=== PATIENT | female | born 1965 | race Caucasian/White ===

== ENCOUNTER 2018-02-23 18:34 | Inpatient (IN) | payer BC, OTHER ==
[~2018-02-23] VITALS: Ht 160 cm; Wt 103.4 kg
[2018-02-23] MEDS ORDERED: MAG HYDROX/AL HYDROX/SIMETH 30 ML LIQUID UDC PO PRN (19:00)
[2018-02-23] MEDS ORDERED: DOCUSATE SODIUM 250 MG CAPSULE PO PRN (19:00)
[2018-02-23] MEDS ORDERED: ONDANSETRON 4 MG/2 ML VIAL IM PRN (19:00)
[2018-02-23] MEDS ORDERED: LOPERAMIDE HCL 2 MG CAPSULE PO PRN ×2 (19:00)
[2018-02-23] MEDS ORDERED: MIRALAX 17 GM POWD.PACK PO PRN (19:00)
[2018-02-23] MEDS ORDERED: IBUPROFEN 600 MG TABLET PO PRN (19:00)
[2018-02-23] MEDS ORDERED: LORAZEPAM 2 MG/1 ML VIAL IM PRN (19:00)
[2018-02-23] MEDS ORDERED: LORAZEPAM 1 MG TABLET PO PRN ×2 (19:00)
[2018-02-23] MEDS ORDERED: ONDANSETRON ODT 4 MG TAB.RAPDIS SL PRN (19:00)
[2018-02-23] MEDS ORDERED: BUPRENORPHINE HCL 2 MG TAB.SUBL SL PRN (19:00)
[2018-02-23] MEDS ORDERED: MAGNESIUM HYDROXIDE 30 ML LIQUID UDC PO PRN (19:00)
--- NOTE | 2018-02-23 20:00 | NUR ---
Intake Assessment Assessment done at intake office Pt appears mildly intoxicated. Patient is alert & oriented x4. She appears disheveled, unkempt & uncombed. She has a flushed face, anxious/irritable mood, and has poor concentration. She presented with fine tremors, nausea, headache and generalized body aches. She has soft and slurred speech. No complaints of shortness of breath noted. Vitals taken immediately B/P 132/81, AZ 88, RR 16, Temp 96.9, O2Sat 95%. Pt is coherent and is able to sign consent & respond to questions appropriately. Explained to pt unit protocols such as Q4H Vitals signs check & regarding destruction of any controlled substances brought to facility and handling of all medications. Pt verbalized understanding.
[2018-02-23 20:14] LABS: BASOPHILS # (AUTO) 0.1 K/uL (0.0-8.0); EOSINOPHILS # (AUTO) 0.3 K/uL (0.0-0.7); EOSINOPHILS % (AUTO) 2.3 % (0.0-7.0); HEMATOCRIT 35.8 % (31.2-41.9); HEMOGLOBIN 11.8 g/dL (10.9-14.3); LYMPHOCYTES # (AUTO) 4.9 K/uL (20.0-40.0); LYMPHOCYTES % (AUTO) 34.1 % (20.5-51.5); MEAN CORPUSCULAR HEMOGLOBIN 28.2 uug (24.7-32.8); MEAN CORPUSCULAR HGB CONC 33 g/dL (32.3-35.6); MEAN CORPUSCULAR VOLUME 85.5 fL (75.5-95.3); MONOCYTES # (AUTO) 0.9 K/uL (2.0-10.0); MONOCYTES % (AUTO) 6.5 % (0.0-11.0); NEUTROPHILS % (AUTO) 56.1 % (38.5-71.5); PLATELET COUNT (AUTO) 480 K/uL (179-408); RED BLOOD CELL COUNT(AUTO) 4.19 MIL/uL (3.63-4.92); WHITE BLOOD COUNT (AUTO) 14.3 K/uL (3.8-11.8)
[2018-02-23] MEDS ORDERED: DIAZEPAM 10 MG TABLET PO PRN ×2 (20:15)
[2018-02-23] MEDS ORDERED: DIAZEPAM 5 MG TABLET PO PRN (20:15)
[2018-02-23] MEDS ORDERED: TIZA4TAB4 PO (20:16)
[2018-02-23] MEDS ORDERED: OXYC-451 PO (20:16)
[2018-02-23 20:21] LABS: *URINE HCG, QUAL NEGATIVE (NEGATIVE)
[2018-02-23 20:28] LABS: *AMPHETAMINE, URINE NEGATIVE (NEGATIVE); *BARBITURATE, URINE NEGATIVE (NEGATIVE); *CANNABINOID, URINE NEGATIVE (NEGATIVE); *COCCAINE, URINE NEGATIVE (NEGATIVE); *OPIATE, URINE POSITIVE (NEGATIVE); *PHENCYCLIDINE SCREEN,URINE NEGATIVE (NEGATIVE); ALANINE AMINOTRANSFERASE 19 U/L (14-59); ALKALINE PHOSPHATASE 98 U/L (50-136); ASPARTATE AMINOTRANSFERASE 43 U/L (15-37); BILIRUBIN,TOTAL 0.2 mg/dL (0.2-1.0); CARBON DIOXIDE 28 mmol/L (21-32); CHLORIDE 95 mmol/L (98-107); CREATININE 1.2 mg/dL (0.6-1.3); GLUCOSE 215 mg/dL (74-106); MAGNESIUM 1.6 mg/dL (1.8-2.4); POTASSIUM 4.3 mmol/L (3.5-5.1); TOTAL PROTEIN, SERUM 8.1 g/dL (6.4-8.2); UREA NITROGEN, BLOOD 19 mg/dL (7-18)
[2018-02-23 20:30] VITALS: BP 132/81
[2018-02-23 20:36] LABS: THYROID STIMULATING HORMONE 6.688 mIU/mL (0.358-3.740)
[2018-02-23 20:37] LABS: ETHANOL < 3 MG/DL (0-0)
[2018-02-23] MEDS ORDERED: LORA1TAB PO (20:43)
[2018-02-23] MEDS ORDERED: MOME13HF IH (20:43)
[2018-02-23] MEDS ORDERED: AMLO1POW MC (20:43)
[2018-02-23] MEDS ORDERED: LURA40TA PO (20:43)
[2018-02-23] MEDS ORDERED: PROM25TA15 PO (20:43)
[2018-02-23] MEDS ORDERED: RANI300T4 PO (20:43)
[2018-02-23] MEDS ORDERED: SENN25TA9 PO (20:43)
[2018-02-23] MEDS ORDERED: GABA600T2 PO (20:43)
[2018-02-23] MEDS ORDERED: AMLO5TAB2 PO (20:43)
[2018-02-23] MEDS ORDERED: ASPI-605 PO (20:43)
[2018-02-23] MEDS ORDERED: OMEP40CA37 PO (20:43)
[2018-02-23] MEDS ORDERED: KETO5DRO OP (20:43)
[2018-02-23] MEDS ORDERED: ESCI20TA37 PO (20:43)
[2018-02-23] MEDS ORDERED: NORE5TAB3 PO (20:43)
[2018-02-23] MEDS ORDERED: LISI40TA4 PO (20:43)
[2018-02-23] MEDS ORDERED: FLUR30CA13 PO (20:43)
[2018-02-23] MEDS ORDERED: ATOR40TA PO (20:43)
[2018-02-23] MEDS ORDERED: ALBU8.5H8 IH (20:43)
[2018-02-23] MEDS ORDERED: NORT25CA PO (20:43)
[2018-02-23] MEDS ORDERED: domperidone (20:43)
[2018-02-23] MEDS ORDERED: BENZ200C53 PO (20:43)
[2018-02-23] MEDS ORDERED: CARV12.52 PO (20:43)
[2018-02-23] MEDS ORDERED: PATIENT MAY USE OWN MED- MD OK PO SCH ×3 (21:00)
[2018-02-23] MEDS ORDERED: ALBUTEROL SULFATE 2.5 MG/ 0.5 ML NEBU NEB PRN (21:00)
[2018-02-23] MEDS ORDERED: INSULIN GLARGINE 100 UNIT SQ SCH (21:00)
--- NOTE | 2018-02-23 21:00 | NUR ---
ADMISSION NOTE: Patient is a 52 y.o female admitted at [facility] on 02/23/18 for medically supervised withdrawal from Ativan, Percocet & Meth use. Patient arrived at approximately 2009pm. Body search done and skin check performed by female staff nurse, no contraband found. Skin noted to be intact. Pt is 5'3" tall and weighs 228 lbs in a standing scale. Pt is cooperative during assessment. Patient is oriented to floor unit and room. Patient follows a diabetic diet with allergies to Compazine, Zofran & Sulfa ATB. Pt wishes to be full Code. Pt appears mildly intoxicated. Patient is alert & oriented x4. She appears disheveled, unkempt & uncombed. She has a flushed face, anxious/irritable mood, and has poor concentration. She presented with fine tremors, nausea, headache and generalized body aches. She has soft and slurred speech. No complaints of shortness of breath noted. Bowel sounds active in all quadrants. Last Bowel movement was today 02/23/18. Lung Sounds clear throughout. Pt denies SOB, cough or chest pain at this time. Pt denies visual, auditory & tactile hallucinations. COWS 11 CIWA 18 noted at this time. Pt has a PCP named Dr. Dane Miller in [place]. Pt has medical history such as DM I, Dyslipidemia, Rheumatoid Arthritis, Atrial Fibrillation, Hypertension, Asthma, Anxiety, Manic Depression, GERD, Hx of TIA (Jun 2006), ADHD, Panic Disorder, PTSD, Bipolar D/O, Personality D/O, & Pneumonia (5 yrs ago). Pt denies any hx of suicide attempt. Pt currently denies SI/HI. Pt brought home medications with her. Blood Labs were drawn. Pt was able to provide urine sample for drug screen upon admission and is voiding clear yellow urine with no problems. Substance use: 1. Ativan- Patient stated that she first had Ativan 2 years ago. Pt is taking prescribed Ativan 3-4mg SL daily for anxiety for the past 2 years. She had 1mg of Ativan the day of present admission immediately prior to arrival on 02/23/18. 2. Percocet- Patient stated that she first had Percocet 4 years ago for her Chronic low back pain. Patient is taking 50-60mg of Percocet daily. She had a 10mg tab today @ around 1600 of 02/23/18. 3. 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 Patient has been smoking intermittently recently in an unspecified amount. Pt has been to [facility] in [place] in the past to detox off Xanax. Her longest period of sobriety was for 2 years more than 5 years ago. Since she's started Percocet and Ativan she has tried stopping on her own which lasted her 3 weeks 2 months ago. Per patient, "I don't get a lot of withdrawals. I usually just sleep and if I do get it, I'll have nausea, generalized body aches, headache, & fatigue". Per pt, she decided to come to treatment because "Im here to get off Opiate and Benzo's & to take medications that is not addictive". She also stated "I don't want to , I don't want to keep using meth cause it will kill me & I don't want to risk losing my ". Patient is a daily smoker she started smoking when she was 16 years old and currently smokes 20 cigarettes daily. Patient is at risk for falls. Patient reported that she fell at home 1 month ago and had deep bone bruising on her right rib. She also reported that she fell in bed 2 days ago. Fall & Seizure precautions are in place. Both side rails are up, educated on proper use of call light with good verbal understanding. Dr. Quijano saw patient at intake and orders are placed. Educated patient about plan of care including detox, group therapy, individual therapy, and discharge planning. Encouraged patient to verbalized feelings. Encourage fluids as tolerated. Will continue to monitor patient.
[2018-02-23] MEDS ORDERED: MAGNESIUM OXIDE 400 MG TABLET PO ONE (21:30)
--- NOTE | 2018-02-23 21:30 | NUR ---
MEDICATION ADMINISTRATION Pt brought medications from home, however pharmacy was already closed when medications were brought up to the unit, therefore scheduled home medications were not able to be verified by pharmacy to be administered at the 2100 scheduled time. was on the unit with ruddy to administer the patients home medications brought during admission. Medications were administered with primary nurse and charge nurse as witnesses.
[2018-02-23] MEDS ORDERED: DIAZEPAM 10 MG TABLET PO SCH (22:00)
[2018-02-23] MEDS: METHOCARBAMOL 750 MG TABLET PO PRN (22:20)
[2018-02-23] MEDS: diphenhydrAMINE 50 MG CAPSULE PO PRN (22:20)
--- NOTE | 2018-02-23 22:20 | NUR ---
PRN Motrin/Robaxin/Benadryl Patient complained of moderately severe headache & 7/10 generalized body aches. Pt is restless and complains of inability to fall asleep. PRN Motrin, Robaxin & Benadryl administered as ordered. Will monitor for effectiveness of medication.
--- NOTE | 2018-02-23 23:20 | NUR ---
PRN Reassessment Pt still awake at this time. Pt verbalized decreased in pain from 7/10 to 3/10 pain and relief from headache after medication administration. Pt in bed and appears comfortable. Safety measures in place. will continue to monitor patient.
[2018-02-24] VITALS: BP 142/77
[2018-02-24 04:00] VITALS: BP 117/84
[2018-02-24] MEDS ORDERED: INSU3INS6 SQ (07:03)
[2018-02-24] MEDS ORDERED: EQUATE (07:03)
[2018-02-24] MEDS ORDERED: LOPE1LIQ97 PO (07:03)
[2018-02-24] MEDS ORDERED: [UNRECOGNIZED DRUG - CODE] PO (07:03)
[2018-02-24] MEDS ORDERED: INSU100I4 SQ (07:03)
[2018-02-24] MEDS: METHOCARBAMOL 750 MG TABLET PO PRN (07:06)
--- NOTE | 2018-02-24 07:28 | NUR ---
End of Shift Note: Pt admitted last night at approximately 2009pm of 02/23/18 for medically supervised withdrawal from Ativan & Percocet use. Pt came in mildly intoxicated with an initial COWS 11 CIWA 18. She had a flushed face, anxious/irritable mood, and has poor concentration. She presented with fine tremors, nausea, headache and generalized body aches. Pt received a PRN Benadryl for sleep, Robaxin for body aches and Motrin for headache. All PRN medications given were effective. Continue to closely monitor patient. Vitals noted WNL and will be closely monitored. Pt slept for a total of 6 hours. Fluid intake: 750 ml, Voided 1x with no bowel movement. Continue to encourage pt to participate in group therapy and to increase fluid intake as tolerated. All needs attended & met. Safety measures in place. Will endorse pt to day shift nurse.
--- NOTE | 2018-02-24 07:30 | NUR ---
Start of Shift Pipe Processor received report on 52 year old female admitted to [facility] on 02/23/18 for medical management of Benzodiazepine, Opiate and Methamphetamine withdrawals. Pt endorses full code, allergies to Compazine, Zofran and Sulfa. Pt eats a Consistent Carb diet. Pt endorses a PMH of DM, Dyslipidemia, Rheumatoid Arthritis, A-Fib, HTN, Asthma and a history of TIA. PPH to include Anxiety, Depression, ADHD, Panic D/O, PTSD, Bipolar and Personality DO. Pt on a Subutex and vAlium taper, tolerating well with a last COWS 11 and CIWA 18, per NOC report. Pt administered Benadryl(insomnia), Robaxin(muscle spasms) x2, and Motrin(pain), per report. Pipe Processor encounters pt in hallway, A/O x4 and makes needs known. Blunted affect with depressed mood and linear thought process with clear speech. Pt endorses nausea, chills, sweats and anxiety r/t withdrawals. Bed in low position with wheels locked and side rails up x2. Will continue to monitor, support and encourage according to plan of care.
[2018-02-24 08:15] VITALS: BP 173/89
[2018-02-24] MEDS ORDERED: TUBERCULIN,PURIF.PROT.DERIV. 5 TU/0.1 ML TEST ID ONE (09:00)
[2018-02-24] MEDS: BUPRENORPHINE HCL 2 MG TAB.SUBL SL SCH ×3 (09:59→21:30)
[2018-02-24] MEDS: GABAPENTIN 600 MG PO SCH ×3 (09:59→16:48)
[2018-02-24] MEDS: DIAZEPAM 10 MG TABLET PO SCH ×3 (09:59→21:30)
--- NOTE | 2018-02-24 09:59 | NUR ---
Insulin Administration Embroidery Worker administered insulin per MD order without Accu-check due to pt's high A1C and pt's home regimen. MD ok'd administration without accu-check. Pt's medication did not require a second witness and was administered with ANN Gama verifying correct dose. Embroidery Worker administered medication in two separate injections, as the pt's own pen only had 16 units available and the order was for 50. Embroidery Worker then administered 34 units in a second injection, with pt tolerating well. Will continue to monitor, support and encourage according to plan of care.
[2018-02-24] MEDS: FORMOTEROL INH SCH ×2 (10:51→16:54)
[2018-02-24] MEDS: MOMETASONE INH SCH ×2 (10:51→16:54)
[2018-02-24] MEDS ORDERED: DEXTROSE 50% 50 ML DISP.SYRIN IV PRN ×2 (12:00→12:15)
[2018-02-24 12:30] VITALS: BP 133/41
[2018-02-24] MEDS: BLOOD SUGAR DIAGNOSTIC 1 EACH STRIP VI SCH ×3 (12:48→21:38)
[2018-02-24] MEDS: LIDOCAINE 5% PATCH TD SCH (12:48)
[2018-02-24] MEDS: KETOROLAC TROMETHAMINE 30 MG INJ IM PRN ×2 (12:48→21:31)
--- NOTE | 2018-02-24 12:48 | NUR ---
PRN Toradol Pt complain of lower back of 8/10 and requests pain medication. Leave Specialist administered medication per MD order and pt tolerated well. Will continue to monitor, support and encourage according to plan of care.
[2018-02-24] MEDS: INSULIN ASPART 1000 UNIT/10 ML SQ SCH ×2 (12:50→16:30)
[2018-02-24] MEDS ORDERED: BLOOD SUGAR DIAGNOSTIC 1 EACH STRIP VI SCH ×3 (13:00→16:30)
--- NOTE | 2018-02-24 13:18 | NUR ---
PRN Re-Assessment Pt endorses relief and is able to ambulate to the patio. Pt with a steady gait. Will continue to monitor, support and encourage according to plan of care.
[2018-02-24] MEDS ORDERED: hydrALAZINE HCL 50 MG TABLET PO PRN (14:30)
[2018-02-24] MEDS: PHENERGAN 25 MG PO PRN ×2 (15:11→21:18)
--- NOTE | 2018-02-24 15:11 | NUR ---
PRN Phenergan Pt complains of nausea and requests her own home medication. Executive Secretary Social Welfare administered medication per MD order, with pt toelrating well. Will continue to monitor, support and encourage according to plan of care.
--- NOTE | 2018-02-24 16:11 | NUR ---
PRN Re-Assessment Medication ineffective, as pt continues to complain of nausea and is requesting more medication. Pt is allergic to other anti-emetics. Will continue to monitor, support and encourage according to plan of care.
[2018-02-24 16:30] VITALS: BP 110/71
--- NOTE | 2018-02-24 16:30 | NUR ---
Accu-check/Insulin Pt's BS 54 on pre-dinner check. Pt consumed OJ and scientific technical writer did not administer insulin. notified with no new orders received. Pt has no symptoms and is A/O x4. Will continue to monitor, support and encourage according to plan of care.
--- NOTE | 2018-02-24 19:15 | NUR ---
Start of Shift Note: Received patient from day shift nurse. Patient is a 52 y.o male admitted for Opiate & Benzo withdrawal. Patient awake, aletr & oriented x4. Patient has a flushed face, anxious, & has a labile mood. Patient is disheveled, unkempt and uncombed. She presented with sweating, chills, 6/10 generalized body aches, nausea & complains of moderate severe headache. Patient started today with her 5-day Subutex and 5-day Ativan taper and tolerating well. She received PRN Toradol & Phenergan during the day and was effective. She is also diabetic and her last BS=54mg/dl. Pt is compliant with medications, treatment and diet regimen. Continue to encourage pt to increase fluid intake as tolerated for hydration. Will continue to encourage participation in group therapy to prevent relapse. Educated patient of current plan of care for the night and medication regimen. Safety precaution in place. Bed locked in lowest position. Both side rails up. Call light within pt's reach. Will continue to monitor patient.
--- NOTE | 2018-02-24 19:28 | NUR ---
End of Shift Hollock Maker provided report on 52 year old female admitted to [facility] on 02/23/18 for medical management of Benzodiazepine, Opiate and Methamphetamine withdrawals. Pt endorses full code, allergies to Compazine, Zofran and Sulfa. Pt eats a Consistent Carb diet. Pt endorses a PMH of DM, Dyslipidemia, Rheumatoid Arthritis, A-Fib, HTN, Asthma and a history of TIA. PPH to include Anxiety, Depression, ADHD, Panic D/O, PTSD, Bipolar and Personality DO. Pt on a Subutex and Valium taper, tolerating well with a last COWS 13 and CIWA 16, recorded at 1630. Pt administered Toradol(pain) and Phenergen(Nausea) on my shift. Pt is A/O x4 and makes needs known. Blunted affect with depressed mood and linear thought process with clear speech. Pt endorses nausea, chills, sweats and anxiety r/t withdrawals. Pt has been social with staff and peers, pt is dramatic and emotional, labile. Bed in low position with wheels locked and side rails up x2.
[2018-02-24 20:00] VITALS: BP 154/64
[2018-02-24] MEDS ORDERED: HOME MED MISCELLANEOUS PO SCH (21:00)
[2018-02-24] MEDS: LATUDA 40MG PO SCH (21:19)
[2018-02-24] MEDS: BACLOFEN 10 MG TABLET PO SCH (21:21)
--- NOTE | 2018-02-24 21:31 | NUR ---
PRN Toradol & Phenergan Patient complained of nausea, 8/10 generalized body aches & moderately severe headache. Patient is restless in bed with facial grimacing noted. PRN Phenergan PO and TOradol IM administered at left deltoid as ordered. Pt tolerated medications well. Safety measures in place. Will monitor effectiveness of medications.
[2018-02-24] MEDS ORDERED: INSULIN GLARGINE,HUM 300 UNITS/3 ML CARTRIDGE SQ ONE (22:01)
[2018-02-24] MEDS: INSULIN GLARGINE,HUM 300 UNITS/3 ML CARTRIDGE SQ SCH (22:31)
--- NOTE | 2018-02-24 22:31 | NUR ---
PRN Reassessment PRN medications effective. Patient observed in the hallway and verbalized decreased in body aches from 8/10 to 3/10 pain, headache decreased from 6/10 to 3/10 and relief from nausea after 1 hour of Toradol & Phenergan administration. Pt appears comfortable at this time. No facial grimacing noted. Safety measures in place. Will continue to monitor patient.
[2018-02-25] VITALS: BP 114/50
[2018-02-25] MEDS: PHENERGAN 25 MG PO PRN ×4 (03:43→21:38)
--- NOTE | 2018-02-25 03:43 | NUR ---
PRN Toradol & Phenergan Patient woke up with complaints of nausea, & 7/10 pain on her lower back. Patient is restless with facial grimacing noted. PRN Phenergan PO and Toradol IM administered at right deltoid as ordered. Pt tolerated medications well. Safety measures in place. Will monitor effectiveness of medications.
[2018-02-25] MEDS: KETOROLAC TROMETHAMINE 30 MG INJ IM PRN ×4 (03:44→23:31)
[2018-02-25 04:00] VITALS: BP 142/70
--- NOTE | 2018-02-25 04:43 | NUR ---
PRN Reassessment Patient asleep at this time and appears calm & comfortable. No facial grimacing noted. No episode of vomiting noted at this time. Safety measures in place. Will continue to monitor patient.
[2018-02-25 06:59] LABS: BASOPHILS # (AUTO) 0.1 K/uL (0.0-8.0); BASOPHILS % (AUTO) 0.5 % (0.0-2.0); EOSINOPHILS # (AUTO) 0.3 K/uL (0.0-0.7); EOSINOPHILS % (AUTO) 2.5 % (0.0-7.0); HEMATOCRIT 33.8 % (31.2-41.9); HEMOGLOBIN 11.1 g/dL (10.9-14.3); LYMPHOCYTES # (AUTO) 3.6 K/uL (20.0-40.0); LYMPHOCYTES % (AUTO) 30.1 % (20.5-51.5); MEAN CORPUSCULAR HEMOGLOBIN 28.1 uug (24.7-32.8); MEAN CORPUSCULAR HGB CONC 33 g/dL (32.3-35.6); MEAN CORPUSCULAR VOLUME 85.4 fL (75.5-95.3); MONOCYTES % (AUTO) 8.3 % (0.0-11.0); NEUTROPHILS # (AUTO) 7.1 K/uL (1.8-8.9); NEUTROPHILS % (AUTO) 58.6 % (38.5-71.5); PLATELET COUNT (AUTO) 388 K/uL (179-408); RED BLOOD CELL COUNT(AUTO) 3.96 MIL/uL (3.63-4.92); WHITE BLOOD COUNT (AUTO) 12.1 K/uL (3.8-11.8)
[2018-02-25 07:08] LABS: BILIRUBIN,DIRECT 0.1 mg/dL (0.0-0.2); BILIRUBIN,TOTAL 0.2 mg/dL (0.2-1.0); CREATININE 1.1 mg/dL (0.6-1.3); POTASSIUM 5.3 mmol/L (3.5-5.1); TOTAL PROTEIN, SERUM 7.2 g/dL (6.4-8.2)
[2018-02-25 07:22] LABS: THYROID STIMULATING HORMONE 3.039 mIU/mL (0.358-3.740)
--- NOTE | 2018-02-25 07:27 | NUR ---
End of Shift Note: Continue to closely monitor patient. Patient stable at this time. Pt remains alert & oriented x4. During my shift, she presented with sweating, chills, generalized body aches, nausea & anxiety, agitation, fine tremors & headache. Patient continues to have lower back pain and received PRN Toradol 2x for pain. Pt also continues to have intermittent nausea & received Phenergan 2x and were effective. Pt continues on her 5-day Ativan & 5-day Subutex taper and tolerating well. Last COWS 12 CIWA 13. Last BS= 211 @ 2100. Continue to closely monitor patient. Vitals noted WNL and will be closely monitored. Pt slept for a total of 6 hours. Fluid intake: 650 ml, Voided 1x with no bowel movement. Continue to encourage pt to participate in group therapy and to increase fluid intake as tolerated. All needs attended & met. Safety measures in place. Will endorse pt to day shift nurse.
--- NOTE | 2018-02-25 07:30 | NUR ---
Start of Shift Note Pt. is 52 y/o female admitted for the medically managed withdrawal from benzodiazepines, opiates, and methamphetamine. Pt. was placed on a 5 day Valium taper and a 4 day Subutex taper. Pt. has a medical history of diabetes type 1, HTN, A-fib, Asthma, Rheumatoid arthritis and multiple other morbidities. Endorsed pt.'s symptoms from previous shift were intermittent nausea, diaphoresis, chills, generalized body aches, anxiety, agitation, fine tremors and headache. Received pt. in bed sitting up in bed with eyes open. Pt. is disheveled, with unkempt hair, and dark rings around her eyes. Pt. has multiple open liquid containers and personal belongings cluttered about her room. Encouraged pt. to maintain a clean and hygienic person and personal space. Pt. presents with flushed facial skin, gross tremors, anxious, agitated, and a flat affect. Educated pt. on treatment plan and medication regiment. Pt. verbalize understanding. Last COW's 12 and CIWA 13. Safety measures in place. Will continue to monitor pt.'s behavior for safety.
[2018-02-25 08:00] VITALS: BP 113/58
[2018-02-25] MEDS: BLOOD SUGAR DIAGNOSTIC 1 EACH STRIP VI SCH ×4 (08:23→21:45)
[2018-02-25] MEDS: INSULIN ASPART 1000 UNIT/10 ML SQ SCH ×3 (08:26→16:30)
[2018-02-25] MEDS: ESCITALOPRAM OXALATE 10 MG TABLET PO SCH (08:33)
[2018-02-25] MEDS: BACLOFEN 10 MG TABLET PO SCH ×2 (08:33→21:39)
[2018-02-25] MEDS: LIDOCAINE 5% PATCH TD SCH (08:35)
[2018-02-25] MEDS: GABAPENTIN 600 MG PO SCH (08:35)
[2018-02-25] MEDS: FORMOTEROL INH SCH ×2 (08:46→16:47)
[2018-02-25] MEDS: MOMETASONE INH SCH ×2 (08:46→16:47)
[2018-02-25] MEDS ORDERED: BUPRENORPHINE HCL 2 MG TAB.SUBL SL SCH (09:00)
[2018-02-25] MEDS ORDERED: DIAZEPAM 5 MG TABLET PO SCH (09:00)
--- NOTE | 2018-02-25 10:10 | NUR ---
PRN Medication Pt. in room sitting up in bed with a grimace on her face and complaining of pain 8/10 on her lower back. Pt. also verbalizing intermittent nausea. Gave pt. Toradol 30mg IM on right Deltoid, and Phenegran from pt.'s own med stock. Will continue to monitor pt.'s behavior for medication effectiveness and safety.
[2018-02-25] MEDS: DICYCLOMINE HCL 20 MG TABLET PO PRN ×2 (10:25→16:40)
--- NOTE | 2018-02-25 10:25 | NUR ---
PRN Medication 1025 Pt. in room complaining of abdominal cramping and constipation stating "I haven't pooped in 2 days, since I got here." Pt. given Bentyl 20mg and Miralax 17mg at this time. Will continue to monitor pt.'s behavior for safety and medication effectiveness.
--- NOTE | 2018-02-25 11:10 | NUR ---
PRN Re-Assessment Pt. laying in bed watching television. Pt. reports 0/10 pain and denies nausea. Pt. states, "I can't believe how much this stuff really works." Medication effective. Will continue to monitor pt. for safety.
--- NOTE | 2018-02-25 11:25 | NUR ---
PRN Re-Assessment Pt. in room laying in bed. Pt. denies abdominal cramps but states she still has not had a BM. Will continue to monitor pt. for medication effectiveness.
[2018-02-25 12:00] VITALS: BP 120/69
[2018-02-25 12:06] LABS: HEPATITIS B SURFACE AG Negative (Negative)
[2018-02-25] MEDS: DIAZEPAM 10 MG TABLET PO SCH ×3 (12:32→21:40)
[2018-02-25] MEDS ORDERED: SODIUM POLYSTYRENE SULFONATE 15 G/60 ML LIQUID UDC PO ONE (13:00)
[2018-02-25] MEDS ORDERED: FUROSEMIDE 20 MG TABLET PO ONE (13:00)
[2018-02-25] MEDS: BUPRENORPHINE HCL 2 MG TAB.SUBL SL SCH ×2 (14:14→21:40)
[2018-02-25] MEDS: GABAPENTIN 400 MG CAPSULE PO SCH ×2 (14:14→21:40)
[2018-02-25 16:00] VITALS: BP 111/70
--- NOTE | 2018-02-25 16:41 | NUR ---
PRN Medication Pt. in room reporting of 9/10 low back pain, abdominal cramping and nausea. Pt. is diaphoretic and grimacing. Administered Toradol 30mg IM, Bentyl 20mg PO and Phenergan 25mg PO at this time. Will continue to monitor pt.'s behavior for medication effectiveness and safety.
--- NOTE | 2018-02-25 17:26 | NUR ---
PRN Medication Pt. sitting on the edge of the bed complaining of diarrhea. States "I've already gone twice in the past 15 minutes, and it was a lot each time." Pt. administered Imodium at this time. Will continue to monitor pt. for medication effectiveness and safety.
--- NOTE | 2018-02-25 17:41 | NUR ---
PRN Re-Assessment Encountered pt. in [address] outside her room. Pt. states "I feel much better." Medication effective. Will continue to monitor pt.'s behavior for safety.
--- NOTE | 2018-02-25 18:26 | NUR ---
PRN Re-Assessment Pt. in room stating "I feel less of urgency to the bathroom and I have less gas now." Medication effective. Will continue to monitor pt. for safety.
--- NOTE | 2018-02-25 19:05 | NUR ---
End of Shift Note Pt. is 52 y/o female admitted for the medically managed withdrawal from benzodiazepines, opiates, and methamphetamine. Pt. was placed on a 5 day Valium taper and a 4 day Subutex taper. After MD assessment pt.'s Valium dose was adjusted to better manage her withdrawal symptoms. Pt. has a medical history of diabetes type 1, HTN, A-fib, Asthma, Rheumatoid arthritis and multiple other morbidities. Last Blood Sugar at 1645 was 98. Pt. was presented with intermittent nausea, diaphoresis, chills, generalized body aches, anxiety, agitation, fine tremors and headache throughout shift. Pt. remained is disheveled, with unkempt hair, and dark rings around her eyes. Pt. compliant with treatment plan and medication regiment. PRN Toradol, Bentyl, Phenergan, and Miralax given to manage symptoms of withdrawal. Last COW's 15 and CIWA 18. Safety measures in place. Will endorse pt.'s behavior to oncoming shift.
--- NOTE | 2018-02-25 19:15 | NUR ---
Start of Shift Note: Received patient from day shift nurse. Patient in bed awake, alert & oriented x4. Patient is anxious & has a labile mood. Patient appears disheveled, unkempt and uncombed. She presented with on and off chills, sweating, 8/10 lower back pain, nausea & complains of moderate severe headache. Patient continues on her 5-day Subutex and 5-day Valium taper and tolerating well. She received PRN Toradol 2x, Phenergan 2x, Immodium, & Bentyl 2x and was effective. She had a K level of 5.3 and she received Kayexalate during day shift. Last BS=98mg/dl. Pt is compliant with medications, treatment and diet regimen. Continue to encourage pt to increase fluid intake as tolerated for hydration. Will continue to encourage participation in group therapy to prevent relapse. Educated patient of current plan of care for the night and medication regimen. Safety precaution in place. Bed locked in lowest position. Both side rails up. Call light within pt's reach. Will continue to monitor patient.
[2018-02-25 20:00] VITALS: BP 140/69
[2018-02-25] MEDS: LATUDA 40MG PO SCH (21:37)
[2018-02-25] MEDS: ACETAMINOPHEN 325 MG TABLET PO PRN (21:38)
[2018-02-25] MEDS: METHOCARBAMOL 750 MG TABLET PO PRN (21:39)
--- NOTE | 2018-02-25 21:39 | NUR ---
PRN Tylenol & Robaxin Patient complained of moderate severe headache & 8/10 lower back pain. Pt appears restless with facial grimacing noted. PRN Tylenol & Robaxin administered as ordered. Will monitor for effectiveness of medications.
[2018-02-25] MEDS: INSULIN GLARGINE,HUM 300 UNITS/3 ML CARTRIDGE SQ SCH (21:48)
--- NOTE | 2018-02-25 22:39 | NUR ---
PRN Reassessment Patient noted in the hallway with no facial grimacing noted. PRN medication effective. Pt verbalized decreased in pain from 8/10 to 5/10 & relief from headache after PRN administration. Safety measures in place. will continue to monitor patient.
[2018-02-26] VITALS: BP 119/57
[2018-02-26 04:00] VITALS: BP 121/63
[2018-02-26] MEDS: METHOCARBAMOL 750 MG TABLET PO PRN ×2 (06:21→16:57)
--- NOTE | 2018-02-26 06:21 | NUR ---
PRN Robaxin Patient complained of 7/10 body aches. Pt is restless with facial grimacing noted. PRN Robaxin administered as ordered. Will monitor for effectiveness of medication.
--- NOTE | 2018-02-26 07:16 | NUR ---
End of Shift Note: Continue to closely monitor patient. Patient stable at this time. Pt remains alert & oriented x4. During my shift, she presented with anxiety, irritability, chills, sweating, 8/10 lower back pain, nausea & headache. Patient continues to have lower back pain and received PRN Toradol pain, Robaxin 2x for myalgia, & Tylenol for headache and were effective. Pt continues on her 5-day Ativan & 5-day Subutex taper and tolerating well. Last COWS 10 CIWA 14. Last BS= 165 @ 2100. Continue to closely monitor patient. Vitals noted WNL and will be closely monitored. Pt slept for a total of 7 hours. Fluid intake: 939 ml, Voided 3x with no bowel movement. Continue to encourage pt to participate in group therapy and to increase fluid intake as tolerated. All needs attended & met. Safety measures in place. Will endorse pt to day shift nurse.
--- NOTE | 2018-02-26 07:21 | NUR ---
PRN Reassessment Pt in her room and watching TV. Pt verbalized decreased in pain from 7/10 to 5/10 at this time. Safety measures in place. Will continue to monitor patient.
--- NOTE | 2018-02-26 07:30 | NUR ---
BS 323, 50 U SCHEDULED NOVOLOG GIVEN
--- NOTE | 2018-02-26 07:30 | NUR ---
START OF SHIFT: PATIENT IS A 52 YR OLD WHO WAS ADMITTED TO [facility] ON 02/23/18 FOR A MEDICALLY SUPERVISED WITHDRAWAL FROM BENZODIAZEPINES ( ATIVAN ) OPIATES ( PERCOCET) AND METHAMPHETAMINES. SHE IS ON DAY 3 OF 4 DAY SUBUTEX/ 5 DAY VALIUM TAPER. SHE HAS AN EXTENSIVE PAST MEDICAL HISTORY INCLUDING DM TYPE 1 ( NO PUMP, INSULIN DEPENDENT), RHEUMATOID ARTHRITIS, HTN, ASTHMA, BIPOLAR, PANIC DISORDER, ADHD, ANXIETY, A FIB AND MANIC DEPRESSION. PRN MEDS GIVEN ON PM SHIFT : TORADOL 30MG IM, TYLENOL, ROBAXIN X2 AND ALBUTEROL ASTHMA INHALER . SHE SLEPT FOR 7 HOURS AND LAST COWS 10 AND CIWA 14 . 0730 ACCU CHECK WAS 323, 50 U SCHEDULED NOVOLOG INSULIN GIVEN . PATIENT IS ALERT AND AWAKE AND IS COLORING A PICTURE AT THIS TIME, REQUESTS FOR PRN MEDS WITH SCHEDULED AM MEDS, ALL REQUESTS TENDED TO, WILL CONTINUE TO FOLLOW MD PLAN OF CARE AND OFFER SUPPORT NEEDED.
[2018-02-26] MEDS: BLOOD SUGAR DIAGNOSTIC 1 EACH STRIP VI SCH ×4 (07:35→21:13)
[2018-02-26] MEDS: INSULIN ASPART 1000 UNIT/10 ML SQ SCH ×3 (07:53→16:30)
[2018-02-26] MEDS: GABAPENTIN 400 MG CAPSULE PO SCH (07:56)
[2018-02-26] MEDS: BACLOFEN 10 MG TABLET PO SCH ×2 (07:56→20:49)
[2018-02-26] MEDS: DIAZEPAM 5 MG TABLET PO SCH ×3 (07:56→20:49)
[2018-02-26] MEDS: ESCITALOPRAM OXALATE 10 MG TABLET PO SCH (07:57)
[2018-02-26] MEDS: PHENERGAN 25 MG PO PRN ×3 (07:57→20:50)
[2018-02-26] MEDS: LIDOCAINE 5% PATCH TD SCH (07:57)
[2018-02-26] MEDS: MOMETASONE INH SCH ×2 (07:58→16:48)
[2018-02-26] MEDS: FORMOTEROL INH SCH ×2 (07:58→16:48)
[2018-02-26] MEDS: KETOROLAC TROMETHAMINE 30 MG INJ IM PRN ×3 (07:58→20:51)
[2018-02-26] MEDS: BUPRENORPHINE HCL 2 MG TAB.SUBL SL SCH ×3 (07:59→20:49)
[2018-02-26 08:00] VITALS: BP 172/76
--- NOTE | 2018-02-26 08:00 | NUR ---
PRN TORADOL/ PHENERGAN TORADOL 30MG IM GIVEN FOR BACK PAIN 04/21 PHENERGAN ( PATIENTS OWN MED GIVEN FOR C/O NAUSEA ( NO VOMIT) WILL REASSESS
--- NOTE | 2018-02-26 09:00 | NUR ---
PRN REASSESS PT STATES BACK PAIN IS NOW 3/10, TORADOL EFFECTIVE NAUSEA HAS CEASED, PHENERGAN EFFECTIVE
[2018-02-26 10:37] LABS: CREATININE 1.2 mg/dL (0.6-1.3); MAGNESIUM 2.1 mg/dL (1.8-2.4); PHOSPHOROUS 5.4 mg/dL (2.5-4.9)
--- NOTE | 2018-02-26 12:11 | NUR ---
BS 140, 50 U SCHEDULED NOVOLOG GIVEN SQ
[2018-02-26 13:00] VITALS: BP 141/63
--- NOTE | 2018-02-26 14:10 | NUR ---
PRN TORADOL/PHENERGAN TORADOL 30MG IM GIVEN FOR BACK PAIN 810 PHENERGAN 25MG PO GIVEN FOR C/O NAUSEA
[2018-02-26] MEDS ORDERED: PNEUMOCOCCAL 23-VAL P-SAC VAC 0.5 ML VIAL IM ONE (14:30)
--- NOTE | 2018-02-26 14:30 | NUR ---
Client was prompted to attend group counseling sessions and client agreed to do so.
--- NOTE | 2018-02-26 14:30 | NUR ---
PNEUMO VACCINE 0.5ML GIVEN
--- NOTE | 2018-02-26 15:10 | NUR ---
PRN TORADOL/PHENERGAN REASSESS PT STATES PAIN LEVEL IS NOW 3/10 , TORADOL 30MG IM EFFECTIVE NAUSEA HAS REDUCED, PHENERGAN 25MG PO EFFECTIVE
[2018-02-26 16:00] VITALS: BP 100/58
[2018-02-26] MEDS: BENZONATATE 200 MG PO PRN (16:47)
--- NOTE | 2018-02-26 16:47 | NUR ---
BS 74, INSULIN HELD
--- NOTE | 2018-02-26 16:50 | NUR ---
PRN MEDS BENZONATE 200MG CAP GIVEN FOR COUGH WILL REASSESS
[2018-02-26] MEDS: ACETAMINOPHEN 325 MG TABLET PO PRN (16:57)
--- NOTE | 2018-02-26 17:00 | NUR ---
PRN TYLENOL/ROBAXIN TYLENOL 650MG PO AND ROBAXIN 750MG PO GIVEN FOR C/O GENERALIZED BODY ACHES WILL REASSESS
--- NOTE | 2018-02-26 17:50 | NUR ---
PRN REASSESS PT REPORTS BENZONATE ALLEVIATED HER THROAT DISCOMFORT/COUGH
--- NOTE | 2018-02-26 18:00 | NUR ---
PRN REASSESS TYLENOL AND ROBAXIN EFFECTIVE, PAIN LEVEL NOW 3/10 CONT TO MONITOR
--- NOTE | 2018-02-26 19:18 | NUR ---
END OF SHIFT PATIENT IS A 52 YR OLD FEMALE ADMITTED TO [facility] ON 02/23/18 FOR A MEDICALLY SUPERVISED WITHDRAWAL FROM BENZODIAZEPINES, OPIATES AND METHAMPHETAMINES, SHE IS ON A 5 DAY VALIUM/SUBUTEX TAPER AND THIS IS DAY 3. SHE IS AN INSULIN DEPENDENT DIABETIC WITH AC AND HS ACCU CHECKS, SUGARS TODAY HAVE BEEN 323/140/74, 1630 NOVOLOG 50 U WAS HELD DUE TO SUGAR LESS THAT 100.PRN MEDS GIVEN THIS SHIFT: TORADOL X2, PHENERGAN X2, TYLENOL, BENZONATE 200MG CAP AND ROBAXIN. WITHDRAWAL SYMPTOMS TODAY HAVE INCLUDED : DIAPHORESIS, GENERALIZED BODY ACHES, NAUSEA AND LETHARGY. LAST COWS 12 AND CIWA 14 @ 1600. SHE HAD A FLUID INTAKE OF 1300 ML, 6 VOIDS AND 1 BM. CONTINUE TO FOLLOW MD PLAN OF CARE AND OFFER SUPPORT NEEDED. ENDORSED TO CLIENT SUPPORT COORDINATOR.
--- NOTE | 2018-02-26 19:30 | NUR ---
START OF SHIFT Pt is a 52 y/o female admitted on 02/23/18 for benzo and opiate withdrawal. Pt is on a 5 day Valium and 5 day Subutex taper, tolerating well. Last COWS 12 and CIWA 14 and PRN Toradol inj x 2, Phenergan x 2, Tylenol and Robaxin administered during day shift. Upon assessment pt presents with anxiety, agitation, restlessness, back pain 8/10, right knee pain 8/10, elevated HR and BP, nausea without vomiting, difficulty falling asleep, unkempt room, disheveled appearance, body aches and intermittent sweats. Pt refuses VTE pumps. Medications due. Safety measures in place. Call light within reach. Will continue to monitor.
[2018-02-26 20:00] VITALS: BP 152/94
[2018-02-26] MEDS: LATUDA 40MG PO SCH (20:50)
--- NOTE | 2018-02-26 20:50 | NUR ---
PRN TORADOL INJ AND PHENERGAN ADMINISTRATION Pt reports pain in lower back and right knee 04/21. Pt complains of nausea without vomiting. Safety measures in place. Call light within reach. Will continue to monitor.
[2018-02-26] MEDS: INSULIN GLARGINE,HUM 300 UNITS/3 ML CARTRIDGE SQ SCH (21:13)
--- NOTE | 2018-02-26 21:20 | NUR ---
PRN TORADOL REASSESSMENT Pt reports pain improved to tolerable level in lower back and right knee. Safety measures in place. Call light within reach. Will continue to monitor.
--- NOTE | 2018-02-26 21:50 | NUR ---
PRN PHENERGAN REASSESSMENT Pt reports nausea improved, able to tolerate fluids and snacks. Safety measures in place. Call light within reach. Will continue to monitor.
[2018-02-26] MEDS: diphenhydrAMINE 50 MG CAPSULE PO PRN (23:14)
--- NOTE | 2018-02-26 23:14 | NUR ---
TRUDY AMOR ADMINISTRATION Pt requests sleep aid, pt reports her mind is racing and having difficulty falling asleep. Safety measures in place. Call light within reach. Will continue to monitor.
[2018-02-27] VITALS: BP 117/43
--- NOTE | 2018-02-27 | NUR ---
COWS/CIWA DEFERRED Pt laying in bed with eyes closed, COWS/CIWA deferred, to be assessed when pt is awake per orders. Respirations even and unlabored. Safety measures in place. Call light within reach. Will continue to monitor.
--- NOTE | 2018-02-27 00:14 | NUR ---
PRN BENADRYL REASSESSMENT Pt laying in bed with eyes closed, medication noted effective. Safety measures in place. Call light within reach. Will continue to monitor.
[2018-02-27] MEDS: KETOROLAC TROMETHAMINE 30 MG INJ IM PRN ×3 (02:58→21:02)
[2018-02-27] MEDS: METHOCARBAMOL 750 MG TABLET PO PRN (03:07)
[2018-02-27] MEDS: BENZONATATE 200 MG PO PRN ×3 (03:07→16:15)
[2018-02-27] MEDS: PHENERGAN 25 MG PO PRN ×2 (03:07→16:15)
--- NOTE | 2018-02-27 03:07 | NUR ---
PRN TORADOL, PHENERGAN, BENZONATE, ROBAXIN ADMINISTRATION Pt reports pain in lower back 8, nausea without vomiting, body aches/myalgias 8/10. Pt presents with cough. Safety measures in place. Call light within reach. Will continue to monitor.
--- NOTE | 2018-02-27 03:37 | NUR ---
PRN TORADOL REASSESSMENT Pt laying in bed with eyes closed, medication noted effective. Safety measures in place. Call light within reach. Will continue to monitor.
--- NOTE | 2018-02-27 04:07 | NUR ---
PRN PHENERGAN, BENZOATE, ROBAXIN AND COWS/CIWA DEFERRED AND VITALS REFUSED Pt laying in bed with eyes closed, medications noted effective. COWS/CIWA deferred, to be assessed when pt is awake per orders. Vitals refused. Respirations even and unlabored. Safety measures in place. Call light within reach. Will continue to monitor.
--- NOTE | 2018-02-27 07:15 | NUR ---
END OF SHIFT Pt is a 52 y/o female admitted on 02/23/18 for benzo and opiate withdrawal. Pt is on a 5 day Valium and 5 day Subutex taper, tolerating well. Pt presented with anxiety, agitation, restlessness, back pain 8/10, right knee pain 8/10, elevated HR and BP, nausea without vomiting, difficulty falling asleep, unkempt room, disheveled appearance, body aches and intermittent sweats. Pt refuses VTE pumps, education provided and pt verbalized understanding. Scheduled medications and PRN Toradol x 2, Phenergan x 2, Benadryl, Benzonate and Robaxin administered, effective in S/S of withdrawal as verbalized by pt. Pt slept 7 hours. Intake 550 ml, void x 3, stool x 0. Safety measures in place. Call light within reach. Pts needs have been met. Endorsed to day shift nurse.
--- NOTE | 2018-02-27 07:30 | NUR ---
START OF SHIFT: PATIENT IS A 52 YR OLD FEMALE ADMITTED TO [facility] ON 02/23/18 FOR A MEDICALLY SUPERVISED WITHDRAWAL FROM BENZODIAZEPINES( ATIVAN) , OPIATES ( PERCOCET) AND METHAMPHETAMINES. PRN MEDS GIVEN ON PM SHIFT : TORADOL 30MG IM X2, PHENERGAN 25MG X2, TESSELON PEARLS, ROBAXIN AND BENADRYL. SHE SLEPT FOR 7+ HOURS AND LAST COWS 12 AND CIWA 14. SHE IS AN INSULIN DEPENDENT DIABETIC, ACCU CHECKS TO BE PERFORMED AC/HS. SHE IS ASLEEP IN BED AT THIS TIME, BREATHING EVEN AND UNLABORED, SIDE RAILS UP X2, CALL LIGHT WITHIN REACH. SHE IS CONTINUING ON A 5 DAY VALIUM/SUBUTEX TAPER AND THIS IS DAY 4. CONTINUE TO FOLLOW MD PLAN OF CARE.
[2018-02-27] MEDS: BLOOD SUGAR DIAGNOSTIC 1 EACH STRIP VI SCH ×4 (07:45→21:13)
--- NOTE | 2018-02-27 07:45 | NUR ---
BS 174/ 50 U NOVOLOG GIVEN SQ
[2018-02-27] MEDS: INSULIN ASPART 1000 UNIT/10 ML SQ SCH ×3 (07:47→16:22)
[2018-02-27 08:00] VITALS: BP 179/83
--- NOTE | 2018-02-27 08:00 | NUR ---
PRN TYLENOL TYLENOL 650MG PO GIVEN FOR TEMP 101.3 WILL RECHECK IN 1 HOUR
[2018-02-27] MEDS: LIDOCAINE 5% PATCH TD SCH (08:01)
[2018-02-27] MEDS: ESCITALOPRAM OXALATE 10 MG TABLET PO SCH (08:01)
[2018-02-27] MEDS: ACETAMINOPHEN 325 MG TABLET PO PRN (08:01)
[2018-02-27] MEDS: DIAZEPAM 5 MG TABLET PO SCH ×2 (08:01→21:00)
[2018-02-27] MEDS: BACLOFEN 10 MG TABLET PO SCH ×2 (08:01→21:02)
[2018-02-27] MEDS: BUPRENORPHINE HCL 2 MG TAB.SUBL SL SCH ×2 (08:05→21:00)
--- NOTE | 2018-02-27 08:58 | NUR ---
TYLENOL REASSESS TEMP NOW 101.9 / 60MINS AFTER 650MG PO TYLENOL ON WAY TO UNIT, WILL NOTIFY
[2018-02-27] MEDS: FORMOTEROL INH SCH ×2 (09:20→16:16)
[2018-02-27] MEDS: MOMETASONE INH SCH ×2 (09:20→16:16)
--- NOTE | 2018-02-27 09:20 | NUR ---
PRN MEDICATION TORADOL 30MG IM GIVEN FOR LOWER BACK PAIN 04/21 TESSELIN PEARLS GIVEN FOR COUGH WILL REASSESS
--- NOTE | 2018-02-27 10:20 | NUR ---
PRN REASSESS TORADOL EFFECTIVE, PAIN LEVEL NOW 3/10 TESSELIN PEARLS EFFECTIVE FOR COUGH SUPPRESSANT
--- NOTE | 2018-02-27 10:23 | NUR ---
TEMP 99.1
[2018-02-27 11:51] LABS: BASOPHILS # (AUTO) 0.3 K/uL (0.0-8.0); BASOPHILS % (AUTO) 1.5 % (0.0-2.0); EOSINOPHILS # (AUTO) 0.1 K/uL (0.0-0.7); EOSINOPHILS % (AUTO) 0.6 % (0.0-7.0); HEMATOCRIT 33.3 % (31.2-41.9); LYMPHOCYTES # (AUTO) 2.4 K/uL (20.0-40.0); LYMPHOCYTES % (AUTO) 12.9 % (20.5-51.5); MEAN CORPUSCULAR HEMOGLOBIN 28.5 uug (24.7-32.8); MEAN CORPUSCULAR HGB CONC 33 g/dL (32.3-35.6); MEAN CORPUSCULAR VOLUME 86.2 fL (75.5-95.3); MONOCYTES # (AUTO) 0.9 K/uL (2.0-10.0); MONOCYTES % (AUTO) 4.8 % (0.0-11.0); NEUTROPHILS # (AUTO) 14.7 K/uL (1.8-8.9); NEUTROPHILS % (AUTO) 80.2 % (38.5-71.5); PLATELET COUNT (AUTO) 405 K/uL (179-408); RED BLOOD CELL COUNT(AUTO) 3.86 MIL/uL (3.63-4.92); WHITE BLOOD COUNT (AUTO) 18.3 K/uL (3.8-11.8)
--- NOTE | 2018-02-27 11:55 | NUR ---
BS 47, NOVOLOG HELD, OJadyn TERRY MD NOTIFIED
[2018-02-27 12:00] VITALS: BP 107/60
[2018-02-27 12:04] LABS: CREATININE 1.4 mg/dL (0.6-1.3); MAGNESIUM 1.8 mg/dL (1.8-2.4); PHOSPHOROUS 3.3 mg/dL (2.5-4.9); POTASSIUM 4.9 mmol/L (3.5-5.1)
[2018-02-27] MEDS ORDERED: IV NORMAL SALINE 500 ML IV ONE (13:00)
--- NOTE | 2018-02-27 13:27 | NUR ---
IV # 22g started left forearm. NS 500cc bolus started via pump. Tolerating well.
--- NOTE | 2018-02-27 14:10 | NUR ---
Rocephin 1g IVPB in 50 cc Dextrose hung @ 1410 @ 100 cc/hr via pump. O2 sat remains @ 94% on 2 liters of 02.
[2018-02-27] MEDS: CEFTRIAXONE 1 G in IV DEXTROSE 5% 50 ML IV SCH (14:15)
[2018-02-27] MEDS: AZITHROMYCIN IV 500 MG in IV DEXTROSE 5% 250 ML IV SCH (14:46)
--- NOTE | 2018-02-27 14:47 | NUR ---
Zithromax 500mg in 250cc Dextrose started @ 250cc/hr via pump
[2018-02-27 16:00] VITALS: BP 86/58
--- NOTE | 2018-02-27 16:15 | NUR ---
PRN PHENERGAN/ BENZOATE PHENERGAN 25MG PO GIVEN FOR NAUSEA BENZOATE ALEX GIVEN FOR COUGH WILL REASSESS
--- NOTE | 2018-02-27 16:30 | NUR ---
BS 266, 50 U NOVOLOG GIVEN SQ
--- NOTE | 2018-02-27 18:51 | NUR ---
END OF SHIFT : PATIENT IS A 52 YR OLD FEMALE ADMITTED TO [facility] ON 02/23/18 FOR A MEDICALLY SUPERVISED WITHDRAWAL FROM BENZODIAZEPINES( ATIVAN) AND OPIATES ( PERCOCET) AND METHAMPHETAMINES. SHE IS AN INSULIN DEPENDENT DIABETIC , BLOOD GLUCOSE LEVELS THIS SHIFT : 176/ 47/ 266. SHE IS ON A 5 DAY VALIUM TAPER AND 4 DAY SUBUTEX TAPER AND THIS IS DAY 4. PATIENT WAS FEBRILE THIS AM WITH A TEMP OF 101.3/101.9/99.1, CHEST X RAY PERFORMED WHICH SHOWS POSSIBLE PNEUMONIA, GROUP A STREP NEGATIVE, RAPID FLU IS NEGATIVE. SHE HAS BEEN PLACED ON IV ANTIBIOTIC THERAPY, ROCEPHIN IG Q 24H AND ZITHROMAX 500MG Q24, KEEP O2 SATS BETWEEN 90-95%. PRN MEDS GIVEN THIS SHIFT: TORADOL 30MG IM, TESSELIN PEARLS, TYLENOL AND PHENERGAN. TODAY SHE HAS HAD A FLAT SAD AFFECT AND HAS BEEN TEARY AT TIMES, SHE IS LETHARGIC AND HAS A WET COUGH. LAST COWS 10 AND CIWA 14 @ 1600. SHE HAD A FLUID INTAKE OF 800ML IV AND PO 1000ML, 3 VOIDS [address] VILLEDA, INFECTIOUS DISEASE MD CAME BY TO SEE PATIENT THIS EVENING AND ORDERED CHEST X RAY FOR AM AND BLOOD WORK. CONTINUE TO FOLLOW MD PLAN OF CARE. ENDORSED TO PARKING METER COLLECTOR.
--- NOTE | 2018-02-27 19:30 | NUR ---
START OF SHIFT Pt is a 52 y/o female admitted on 02/23/18 for benzo and opiate withdrawal. Pt on a 4 day Subutex and 5 day Valium taper. Last COWS 10 and CIWA 14 and PRN Toradol, Benzonate x 2, Tylenol, Phenergan, Albuterol inhaler administered during day shift. Pt presented with fever, dyspnea, and productive cough; Chest-ray, sputum culture, blood culture, strep culture, flu, MRSA tests done. Chest x-ray resulted with possible pneumonia, pt started on IV Rocephin and Zithromax Q24H. IV 22 gauge in left wrist, IV site patent and no redness, swelling or pain noted at site. IVF to be started at 125 ml/hour. Last BS 266 during day shift. Pt on 02 therapy to maintain 02 at 90-95%. Upon assessment pt presents with anxiety, agitation, racing thoughts, fatigue, difficulty concentrating, difficulty thinking clearly, disheveled appearance, dyspnea, sweats, chills, nausea without vomiting, lethargy, cough and flat affect. Medications due. Safety measures in place. Call light within reach. Will continue to monitor.
[2018-02-27 20:00] VITALS: BP 86/53
--- NOTE | 2018-02-27 21:00 | NUR ---
SCHEDULED SUBUTEX AND VALIUM HELD Pt sedated and BP 86/53. Orders to hold Subutex and Valium. Safety measures in place. Call light within reach. Will continue to monitor.
[2018-02-27] MEDS: LACTOBACILLUS RHAMNOSUS GG 1 EACH CAPSULE PO SCH (21:02)
[2018-02-27] MEDS: LATUDA 40MG PO SCH (21:02)
--- NOTE | 2018-02-27 21:02 | NUR ---
PRN ALBUTEROL INHALER ADMINISTRATION Pt presents with dyspnea. Pt on 02 therapy via nasal cannula, 02 98%. Head of bed elevated to semi fowlers. Pt requests Albuterol. Safety measures in place. Call light within reach. Will continue to monitor.
--- NOTE | 2018-02-27 21:02 | NUR ---
PRN TORADOL INJ ADMINISTRATION Pt reports pain 9/10 in lower back. Safety measures in place. Call light within reach. Will continue to monitor.
[2018-02-27] MEDS: INSULIN GLARGINE,HUM 300 UNITS/3 ML CARTRIDGE SQ SCH (21:15)
[2018-02-27] MEDS: IV NS 1000 ML 1,000 ML IV PRN (21:20)
--- NOTE | 2018-02-27 21:32 | NUR ---
PRN TORADOL REASSESSMENT Pt laying in bed with eyes closed, medication noted effective. Safety measures in place. Call light within reach. Will continue to monitor.
--- NOTE | 2018-02-28 | NUR ---
COWS/CIWA DEFERRED AND VITALS REFUSED Pt laying in bed with eyes closed, COWS/CIWA deferred, to be assessed when pt is awake per orders. Vitals refused. Pt on via nasal cannula, . Respirations even and unlabored. Safety measures in place. Call light within reach. Will continue to monitor.
[2018-02-28] MEDS: METHOCARBAMOL 750 MG TABLET PO PRN ×2 (06:04→18:17)
[2018-02-28] MEDS: PHENERGAN 25 MG PO PRN ×2 (06:04→20:43)
[2018-02-28] MEDS: BENZONATATE 200 MG PO PRN ×2 (06:12→18:17)
[2018-02-28] MEDS: KETOROLAC TROMETHAMINE 30 MG INJ IM PRN ×2 (06:19→18:17)
--- NOTE | 2018-02-28 06:19 | NUR ---
PRN ROBAXIN, PHENERGAN, ALBUTEROL, BENZONATE AND TORADOL INJ ADMINISTRATION Pt presents with body aches 04/21, nausea without vomiting and dyspnea. Robaxin, Phenergan and Albuterol administered at 0604. Pt presents with a productive cough and lower back pain and right knee pain 04/21. Toradol and Benzonate administered at 0619. Safety measures in place. Call light within reach. Will continue to monitor.
--- NOTE | 2018-02-28 06:49 | NUR ---
PRN TORADOL INJ REASSESSMENT Pt laying in bed with eyes closed, medication noted effective. Respirations even and unlabored. Safety measures in place. Call light within reach. Will continue to monitor.
[2018-02-28 06:55] LABS: *BILIRUBIN,URIN NEGATIVE (NEGATIVE); *BLOOD, URINE Trace-intact (NEGATIVE); *CLARITY,URINE CLEAR (CLEAR); *COLOR,URINE YELLOW (YELLOW); *KETONES,URINE NEGATIVE (NEGATIVE); *PROTEIN,URINE NEGATIVE (NEGATIVE); *UROBILINOGEN,URINE 0.2 E.U./dl (NORMAL); LEUKOCYTE ESTERASE ,URINE NEGATIVE (NEGATIVE); NITRITE, URINE NEGATIVE (NEGATIVE); PH,URINE 5.5 (5.0-8.0); UGLUCOSE NEGATIVE (NEGATIVE)
--- NOTE | 2018-02-28 07:04 | NUR ---
PRN ROBAXIN, PHENERGAN AND BENZONATE REASSESSMENT Pt laying in bed with eyes closed, medications noted effective. Respirations even and unlabored. Safety measures in place. Call light within reach. Will continue to monitor.
[2018-02-28 07:26] LABS: BACTERIA,URINE MODERATE /HPF (NONE SEEN); SQUAMOUS EPITHELIAL CELL,UR MODERATE /HPF (NONE SEEN)
--- NOTE | 2018-02-28 07:29 | NUR ---
END OF SHIFT Pt is a 52 y/o female admitted on 02/23/18 for benzo and opiate withdrawal. Pt on a 4 day Subutex and 5 day Valium taper, tolerating well. IVF running at 125 ml/hr. IV 22 gauge in left wrist, IV site patent and no redness, swelling or pain noted at site. Last BS 113. Pt on 02 therapy 2 L via nasal cannula. Pt refuses VTE pumps, educated pt risks, pt verbalized understanding. Pt presented with anxiety, agitation, racing thoughts, fatigue, difficulty concentrating, difficulty thinking clearly, disheveled appearance, dyspnea, sweats, chills, nausea without vomiting, lethargy, cough and flat affect. Scheduled medications and PRN Toradol injx 2, Albuterol inhaler x 2, Robaxin, Phenergan and Benzoate administered, effective in S/S of withdrawal AEB COWS 12 and CIWA 16 lowered to COWS 11 and CIWA 15 during shift. Pt slept 11 hours. Intake 250 ml, void x 0, stool x 0. Safety measures in place. Call light within reach. Pts needs have been met. Endorsed to day shift nurse.
--- NOTE | 2018-02-28 07:50 | NUR ---
START OF SHIFT PT IS A 52 Y/O F ADMITTED ON 02/23/18 FOR MEDICALLY SUPERVISED BENZO AND OPIATE WITHDRAWAL. PT IS ON A MODIFIED SUBUTEX AND VALIUM TAPER. LAST COWS 11 AND CIWA 15 @0600, AND PT SLEPT 11 HRS. RECEIVED PT A/OX4, RESPIRATIONS EVEN AND UNLABORED. PT HAS A DISHEVELED APPEARANCE, FRIENDLY AND COOPERATIVE WITH AN ANXIOUS AND DEPRESSION MOOD. PT PRESENTS FATIGUE, FACIAL FLUSHING, GENERALIZED BODY ACHES, ANXIETY, AGITATION, RESTLESSNESS, DIAPHORESIS, INTERMITTENT CHILLS, DIFFICULTY THINKING AND CONCENTRATING, AND TREMORS ARE NOTED. PT HAS AN IV ON L WRIST 22G RUNNING NS @125ML/HR, RECEIVING ABX Q24H. PT IS RECEIVING O2 2L VIA NC. PT IS REFUSING SCD PUMPS AT THIS TIME; EXPLAINED RISKS AND BENEFITS HOWEVER PT STILL REFUSES. EDUCATED PT WITH TODAY'S PLAN OF CARE AND MED REGIMEN. SIDE RAILS UPX2, BED IS IN LOW POSITION. CALL LIGHT WITHIN REACH. SAFETY MEASURES IN PLACE. WILL CONTINUE TO MONITOR.
[2018-02-28 08:00] VITALS: BP 131/60
[2018-02-28] MEDS: LACTOBACILLUS RHAMNOSUS GG 1 EACH CAPSULE PO SCH ×2 (08:07→20:43)
[2018-02-28] MEDS: ESCITALOPRAM OXALATE 10 MG TABLET PO SCH (08:07)
[2018-02-28] MEDS: INSULIN ASPART 1000 UNIT/10 ML SQ SCH ×3 (08:15→16:30)
[2018-02-28] MEDS: BLOOD SUGAR DIAGNOSTIC 1 EACH STRIP VI SCH ×4 (08:15→20:48)
--- NOTE | 2018-02-28 08:15 | NUR ---
DELMIS BS 145. SCHEDULED NOVALOG 50 UNITS GIVEN.
[2018-02-28] MEDS: MOMETASONE INH SCH ×2 (08:21→17:43)
[2018-02-28] MEDS: FORMOTEROL INH SCH ×2 (08:21→17:43)
[2018-02-28] MEDS: BACLOFEN 10 MG TABLET PO SCH ×2 (08:21→20:42)
[2018-02-28] MEDS: LIDOCAINE 5% PATCH TD SCH (08:23)
[2018-02-28 08:29] LABS: CREATININE 1.1 mg/dL (0.6-1.3); PHOSPHOROUS 3.3 mg/dL (2.5-4.9); POTASSIUM 4.8 mmol/L (3.5-5.1)
[2018-02-28 08:54] LABS: BASOPHILS # (AUTO) 0.1 K/uL (0.0-8.0); BASOPHILS % (AUTO) 0.4 % (0.0-2.0); EOSINOPHILS # (AUTO) 0.2 K/uL (0.0-0.7); EOSINOPHILS % (AUTO) 1.3 % (0.0-7.0); HEMATOCRIT 30.2 % (31.2-41.9); HEMOGLOBIN 9.9 g/dL (10.9-14.3); LYMPHOCYTES # (AUTO) 2.8 K/uL (20.0-40.0); LYMPHOCYTES % (AUTO) 20.1 % (20.5-51.5); MEAN CORPUSCULAR HEMOGLOBIN 28.5 uug (24.7-32.8); MEAN CORPUSCULAR HGB CONC 33 g/dL (32.3-35.6); MEAN CORPUSCULAR VOLUME 87.2 fL (75.5-95.3); MONOCYTES # (AUTO) 0.7 K/uL (2.0-10.0); MONOCYTES % (AUTO) 5.3 % (0.0-11.0); NEUTROPHILS # (AUTO) 10.2 K/uL (1.8-8.9); NEUTROPHILS % (AUTO) 72.9 % (38.5-71.5); PLATELET COUNT (AUTO) 341 K/uL (179-408); RED BLOOD CELL COUNT(AUTO) 3.46 MIL/uL (3.63-4.92)
[2018-02-28] MEDS ORDERED: BUPRENORPHINE HCL 2 MG TAB.SUBL SL SCH (09:00)
[2018-02-28] MEDS ORDERED: DIAZEPAM 5 MG TABLET PO SCH (09:00)
[2018-02-28] MEDS: IV NS 1000 ML 1,000 ML IV PRN (10:09)
[2018-02-28] MEDS: CLONIDINE HCL 0.1 MG TABLET PO PRN (10:16)
[2018-02-28] MEDS ORDERED: NICOTINE 14 MG/24HR PATCH TD PRN (11:15)
[2018-02-28] MEDS ORDERED: NICOTINE POLACRILEX 4 MG GUM-PK OF TEN BC PRN (11:15)
[2018-02-28 12:00] VITALS: BP 115/61
--- NOTE | 2018-02-28 12:30 | NUR ---
DELMIS BS 120. SCHEDULED NOVALOG 50 UNITS GIVEN.
[2018-02-28] MEDS: CEFTRIAXONE 1 G in IV DEXTROSE 5% 50 ML IV SCH (12:31)
[2018-02-28] MEDS: AZITHROMYCIN IV 500 MG in IV DEXTROSE 5% 250 ML IV SCH (13:24)
[2018-02-28] MEDS: DIAZEPAM 5 MG TABLET PO SCH ×2 (14:17→21:03)
[2018-02-28] MEDS: BUPRENORPHINE HCL 2 MG TAB.SUBL SL SCH ×2 (14:19→21:03)
[2018-02-28 16:00] VITALS: BP 116/62
--- NOTE | 2018-02-28 17:30 | NUR ---
DELMIS BS 22; NOTIFIED. DEXTROSE 50% 50 ML IV GIVEN AND ORANGE JUICE. PT WAS AWAKE, SITTING UP AT THE TIME, EATING; PT REPORTED FEELING HOT. Addendum: 02/28/18 at 1923 by FORREST DUNAWAY RN SCHEDULED NOVALOG 50 UNITS HELD.
[2018-02-28] MEDS ORDERED: INSULIN ASPART 1000 UNIT/10 ML SQ SCH (17:58)
--- NOTE | 2018-02-28 18:17 | NUR ---
PRN TORADOL 30 MG IM. ROBAXIN 750 MG PO, AND BENZOATE 200 MG PO PRNS GIVEN. PT C/O BACK PAIN 8/10, GENERALIZED BODY ACHES, AND PERSISTENT COUGHING WITH FACIAL GRIMACING, RESTLESSNESS, IRRITABILITY. WILL MONITOR AND REASSESS.
--- NOTE | 2018-02-28 18:30 | NUR ---
ACCUCHECK RECHECKED; BS 97; PT IS AWAKE AND ALERT, LAYING IN BED WATCHING TV.
[2018-02-28] MEDS ORDERED: BLOOD SUGAR DIAGNOSTIC 1 EACH STRIP VI ONE (18:45)
--- NOTE | 2018-02-28 19:18 | NUR ---
REASSESSMENT PT IS LAYING IN BED WATCHING TV. RESPIRATIONS EVEN AND UNLABORED. RR18, O2SAT 97%.
--- NOTE | 2018-02-28 19:30 | NUR ---
START OF SHIFT Pt is a 52 y/o female admitted on 02/23/18 for benzo and opiate withdrawal. Pt is on a 5 day Valium and 4 day Subutex taper, tolerating well. Pt is diabetic, last BS 97. BS dropped to 22 during day shift, PRN dextrose and scheduled Novolog held. 02 therapy via nasal cannula administered at 2L to maintain 02 90-95%. Pt on IVF NS 0.9%, IV site on left wrist with 22 gauge. No pain, redness or swelling at site. Last COWS 10 and CIWA 11 and PRN Toradol, Robaxin and Benzonate administered during day shift. Upon assessment pt presents with anxiety, fatigue, lethargy, difficulty concentrating, difficulty thinking clearly, disheveled appearance, dyspnea, sweats, chills, nausea without vomiting, cough, unkempt room and flat affect. Medications due. Safety measures in place. Call light within reach. Will continue to monitor.
--- NOTE | 2018-02-28 19:41 | NUR ---
END OF SHIFT PT'S BS @1730 WAS 22; SCHEDULED NOVALOG HELD, DEXTROSE 50% 50ML IV AND ORANGE JUICE WAS GIVEN. RECHECK BS WAS 97. PT'S LAST COWS 10 CIWA 11 @1600. TORADOL, ROBAXIN AND BENZOATE PRNS GIVEN DURING SHIFT. CONTINUES ON NS 125@ML/HR ON L WRIST 22G. PT REFUSES TO HAVE O2 VIA NC AT THIS TIME; 97% ON ROOM AIR. PRILEMINARY SPUTUM GRAM STAIN NEG. PT C/O WANTING TO SMOKE. EXPLAINED RISKS AND PT VERBALIZED UNDERSTANDING. OFFERED NICOTINE PATCH AND GUM BUT PT REPORTED HAVING NO CRAVINGS AND REFUSED. VALIUM AND SUBUTEX TAPER MODIFIED. PT REPORTS HAVING MORE ENERGY COMPARED TO YESTERDAY. FLUID INTAKE 2100ML, VOIDED X5, BM 1. PT ATE MOSTLY 75% OF MEALS. SAFETY MEASURES IN PLACE. ENDORSEMENT GIVEN TO CABLE INSTALLER REPAIRER NURSE.
[2018-02-28 20:00] VITALS: BP 96/62
[2018-02-28] MEDS: LATUDA 40MG PO SCH (20:43)
--- NOTE | 2018-02-28 20:43 | NUR ---
PRN PHENERGAN AND ALBUTEROL INHALER ADMINISTRATION Pt reports nausea without vomiting. Pt reports mild dyspnea. 02 95% on RA. Safety measures in place. Call light within reach. Will continue to monitor.
[2018-02-28] MEDS: INSULIN GLARGINE,HUM 300 UNITS/3 ML CARTRIDGE SQ SCH (20:50)
--- NOTE | 2018-02-28 21:00 | NUR ---
ACCUCHECK 95 SCHEDULED LANTUS 100 UNITS ADMINISTERED.
--- NOTE | 2018-02-28 21:43 | NUR ---
PRN PHENERGAN REASSESSMENT Pt laying in bed with eyes closed, medication noted effective. Safety measures in place. Call light within reach. Will continue to monitor.
--- NOTE | 2018-03-01 | NUR ---
COWS/CIWA DEFERRED AND VITALS REFUSED Pt laying in bed with eyes closed, COWS/CIWA deferred, to be assessed when pt is awake per orders. Vitals refused. Respirations even and unlabored. Safety measures in place. Call light within reach. Will continue to monitor.
[2018-03-01 04:00] VITALS: BP 99/65
[2018-03-01] MEDS: KETOROLAC TROMETHAMINE 30 MG INJ IM PRN ×3 (04:53→19:30)
[2018-03-01] MEDS: BENZONATATE 200 MG PO PRN (04:54)
[2018-03-01] MEDS: IV NS 1000 ML 1,000 ML IV PRN (04:54)
[2018-03-01] MEDS: PHENERGAN 25 MG PO PRN ×2 (04:54→11:27)
--- NOTE | 2018-03-01 04:54 | NUR ---
PRN TORADOL, BENZONATE, PHENERGAN ADMINISTRATION Pt reports pain in lower back 8/10, nausea without vomiting, and presents with productive cough. Safety measures in place. Jaspreet light within reach. Will continue to monitor.
[2018-03-01] MEDS: HYDROXYZINE PAMOATE 25 MG CAPSULE PO PRN ×3 (05:18→23:55)
--- NOTE | 2018-03-01 05:18 | NUR ---
PRN ALBUTEROL AND VISTARIL ADMINISTRATION Pt presents with dyspnea and anxiety. Pt is fidgety. Albuterol inhaler administered at 0507. Safety measures in place. Call light within reach. Will continue to monitor.
--- NOTE | 2018-03-01 05:24 | NUR ---
PRN TORADOL REASSESSMENT Pt reports pain reduced to tolerable level. Safety measures in place. Jaspreet light within reach. Will continue to monitor.
--- NOTE | 2018-03-01 05:54 | NUR ---
PRN BENZONATE AND PHENERGAN REASSESSMENT Pt reports nausea improved, no episodes of vomiting. Pt presents with reduced cough. Safety measures in place. Call light within reach. Will continue to monitor.
--- NOTE | 2018-03-01 06:18 | NUR ---
PRN VISTARIL REASSESSMENT Pt presents with anxiety, is fidgety and restlessness. Encouraged relaxation techniques. Safety measures in place. Call light within reach. Will continue to monitor.
--- NOTE | 2018-03-01 07:02 | NUR ---
END OF SHIFT Pt is a 52 y/o female admitted on 02/23/18 for benzo and opiate withdrawal. Pt is on a 5 day Valium and 4 day Subutex taper, tolerating well. Pt is diabetic, last BS 95, scheduled Lantus 100 units administered. 02 therapy via nasal cannula administered at 2L to maintain 02 90-95%. Pt on IVF NS 0.9%, IV site on left wrist with 22 gauge. No pain, redness or swelling at site. Pt presented with anxiety, agitation, fatigue, lethargy, difficulty concentrating, difficulty thinking clearly, disheveled appearance, difficulty falling and staying asleep, dyspnea, sweats, chills, tremors, nausea without vomiting, cough, unkempt room and flat affect. Scheduled medications and PRN Phenergan x 2, Albuterol x 2, Toradol inj, Benzonate, and Vistaril administered, effective in S/S of withdrawal as verbalized by pt. Last COWS 11 and CIWA 16. Pt slept 8 hours intermittently. Intake 100 ml, void x 2, stool x 0. Safety measures in place. Call light within reach. Pts needs have been met. Endorsed to day shift nurse. Addendum: 03/01/18 at 0731 by ELICEO LORENZO RN Correction: Intake 500 ml, void x 5, stool x 0. Pt slept 10 hours.
--- NOTE | 2018-03-01 07:10 | NUR ---
Start Of Shift Report received from warehouse shift supervisor nurse. Pt is a 52 y/o female admitted on 02/23/18 for benzo and opiate withdrawal. Per warehouse shift supervisor nurse pt's last CIWA was 16 and COWS was a 11. Pt is continues her 5 day Valium and 4 Day Subutex tapers. Upon start of shift pt noted laying in her bed with her eyes closed resting, breathing even and unlabored. When greeted pt stated. Did you bring my medication with you am I due yet? Im having symptoms I need my Meds . Pt's room appears unorganized and messy, pt has water, soda bottles and candy wraps thrown around the room her clothes are all over the room. Pt appears anxious, sweaty and flushed. During assessment, pt is AOx3. Lung sounds clear bilaterally. Pt has an IV on her left wrist 22G patent, flushes well. Pt is on IV Antibiotics for PNA. Radial pulse is regular and non-bounding. Abdomen soft and non-tender. Pt's skin is warm and intact. pt denies any pain at the moment. Encouraged pt to drink plenty of fluids to keep hydrated and help the detox process. Placed Bed in lowest position. Side rails up x2. Call light functioning and within reach. All needs attended and met. Will continue to monitor.
[2018-03-01] MEDS: INSULIN ASPART 1000 UNITS/10 ML VIAL(NOVOLOG) SQ SCH ×3 (07:30→16:12)
[2018-03-01 08:00] VITALS: BP 112/69
[2018-03-01] MEDS: BLOOD SUGAR DIAGNOSTIC 1 EACH STRIP VI SCH ×4 (08:08→20:36)
[2018-03-01 08:21] LABS: BASOPHILS % (AUTO) 0.4 % (0.0-2.0); EOSINOPHILS # (AUTO) 0.2 K/uL (0.0-0.7); HEMATOCRIT 30.5 % (31.2-41.9); LYMPHOCYTES % (AUTO) 24.9 % (20.5-51.5); MEAN CORPUSCULAR HEMOGLOBIN 28.3 uug (24.7-32.8); MEAN CORPUSCULAR HGB CONC 33 g/dL (32.3-35.6); MEAN CORPUSCULAR VOLUME 86.5 fL (75.5-95.3); MONOCYTES % (AUTO) 8.1 % (0.0-11.0); NEUTROPHILS # (AUTO) 7.8 K/uL (1.8-8.9); NEUTROPHILS % (AUTO) 64.6 % (38.5-71.5); PLATELET COUNT (AUTO) 387 K/uL (179-408); RED BLOOD CELL COUNT(AUTO) 3.53 MIL/uL (3.63-4.92); WHITE BLOOD COUNT (AUTO) 12.1 K/uL (3.8-11.8)
[2018-03-01] MEDS: BACLOFEN 10 MG TABLET PO SCH ×2 (08:29→20:14)
[2018-03-01] MEDS: MOMETASONE INH SCH ×2 (08:29→16:19)
[2018-03-01] MEDS: ESCITALOPRAM OXALATE 10 MG TABLET PO SCH (08:29)
[2018-03-01] MEDS: FORMOTEROL INH SCH ×2 (08:29→16:19)
[2018-03-01] MEDS: LACTOBACILLUS RHAMNOSUS GG 1 EACH CAPSULE PO SCH ×2 (08:29→20:14)
[2018-03-01] MEDS: LIDOCAINE 5% PATCH TD SCH (08:30)
[2018-03-01] MEDS ORDERED: DIAZEPAM 5 MG TABLET PO SCH (09:00)
[2018-03-01] MEDS ORDERED: BUPRENORPHINE HCL 2 MG TAB.SUBL SL SCH (09:00)
[2018-03-01 09:03] LABS: MAGNESIUM 2.2 mg/dL (1.8-2.4); POTASSIUM 4.8 mmol/L (3.5-5.1)
--- NOTE | 2018-03-01 11:29 | NUR ---
PRN MEDICATION Pt c/o pain in her lower back rating it /10 pt also c/o nausea, PRN Toradol given IM, and PRN Phenergan given PO, all needs met will continue to monitor patient.
[2018-03-01 12:00] VITALS: BP 103/66
--- NOTE | 2018-03-01 12:29 | NUR ---
PRN REASSESSMENT Pt stated she is no longer nauseas and that her pain level has decreased to 3/10. All needs met will continue to monitor
[2018-03-01] MEDS ORDERED: LEVOFLOXACIN 750 MG TABLET PO SCH (13:00)
[2018-03-01] MEDS ORDERED: GUAIFENESIN LA 600 MG TABLET.SA PO SCH (13:00)
--- NOTE | 2018-03-01 14:54 | NUR ---
PRN VISTARIL 25 MG PO PRN GIVEN FOR C/O INCREASED ANXIETY. TO BE REASSESSED BY PRIMARY NURSE.
[2018-03-01 16:00] VITALS: BP 146/81
--- NOTE | 2018-03-01 19:28 | NUR ---
START OF SHIFT NOTE: Patient is a 52 year old female presented for Benzodiazepines (Ativan), Opioid (Percocet) and Methamphetamine) withdrawal. The patient completed ordered 5 day Valium and 4 day Subutex Taper, which tolerated well. Patient is alert and oriented x4. Patient appears anxious with labile affect. Patient reports allergy to Compazine, Zofran, Sulfa (Sulfonamide, Antibiotics), Ondansetron, Prochlorperazine. Patient is on Full Code and Diabetic Diet. Patient is on Fall and Seizures Precautions. Patient denies history of withdrawal-related seizures. Patient reports history of Fall (Jan, 2018). Last CIWA=9, COWS=8 at 1600: The patient presented with anxiety, agitation, nervousness, nausea, low back pain, myalgia, nasal congestion, restlessness, tremors, abdominal cramps, sweating, and fatigue. PRN Toradol 30 mg/1ml IM PO administrated for low back pain "9/10" at 1128, PRN Vistaril 25 mg PO administrated for anxiety at 1454, PRN Phenergan 25 mg PO administrated for nausea at 1127, and were effective, per day shift nurse report. Patient remains compliant with treatment, medications and diet regime. Encouraged to fluid intake as tolerated. Encourage to attended groups activities. Patient is scheduled for discharging tomorrow at 0930. All needs met. Safety measures: Call light within reach, bed is locked in lowest position, and padded bed rails up bilaterally. Patient endorsed by day shift nurse. Will continue to monitor closely.
--- NOTE | 2018-03-01 19:28 | NUR ---
End of Shift Report given to night baker nurse, Plan of care followed, Vital signs monitored closely Q4H. Withdrawals symptoms were closely monitored, medications given as schedule. Initial CIWA 14 COWS 12. Pt encouraged adequate PO fluid intake as tolerated. Pt presented with sweats flushed face anxiety and tremors during the day. Pt received all of the scheduled medications. Pt received PRN Toradol Vistaril and Phenergan. Last CIWA 9 COWS 8. Pt reported that the 5 day Valium and 4 day Subutex have been working well at controlling the withdrawal symptoms. Pt has completed her taper and is being discharged tomorrow. Per MD order IV removed, tubing came out easily and intact. Pt ate all of the meals. Pt attended all the groups and activities to learn new coping skills to prevent relapse. Pt denies any SI/HI. All safety measures in place, bed in lowest locked position, call light within reach. All needs met and attended.
--- NOTE | 2018-03-01 19:29 | NUR ---
PRN APRESOLINE (HYDRALAZINE HCL 50 MG TAB) 50MG PO ADMINISTRATION PRN APRESOLINE (HYDRALAZINE HCL 50 MG TAB) 50 MG PO ADMINISTRATED FOR BP: 183/91 ORDERED. PATIENT TOLERATED WELL. ALL NEEDS MET. SAFETY MEASURES ON PLACE. CALL LIGHT WITHIN REACH, BED IN LOWEST POSITION, AND LOCKED, AND PADDED RAILS UP BILATERALLY. WILL CONTINUE TO MONITOR CLOSELY.
--- NOTE | 2018-03-01 19:30 | NUR ---
PRN TORADOL INJ.(KETOROLAC TROMETHAMINE 30 MG INJ.) 30 MG/1 ML IM ADMINISTRATION PRN TORADOL INJ. 30 MG/1 ML IM ON RIGHT UPPER DORSOGLUTEAL SITE - GLUTEUS LACIE MUSCLE ADMINISTRATED FOR D/T LOW BACK PAIN "05/22". PATIENT TOLERATED WELL. ALL NEEDS MET. SAFETY MEASURES: CALL LIGHT WITHIN REACH, BED IS LOCKED IN THE LOWEST POSITION, AND PADDED BED RAILS UP X2. WILL CONTINUE TO MONITOR CLOSELY.
[2018-03-01 20:00] VITALS: BP 139/84
--- NOTE | 2018-03-01 20:00 | NUR ---
RE-ASSESSMENT PATIENT IS SLEEPING. RESPIRATIONS ARE EVEN AND UNLABORED. RR 16. PRN TORADOL INJ. 30 MG/1 ML IM ON RIGHT UPPER DORSOGLUTEAL SITE - GLUTEUS LACIE MUSCLE ADMINISTRATED FOR D/T LOW BACK PAIN "05/22" AT 1930 WAS EFFECTIVE. ALL NEEDS MET. SAFETY MEASURES ON PLACE: CALL LIGHT WITHIN REACH, AND PADDED BED RAILS UP X2. WILL CONTINUE TO MONITOR CLOSELY.
[2018-03-01] MEDS: FERROUS SULFATE 325 MG TABEC PO SCH (20:14)
[2018-03-01] MEDS ORDERED: FERR325T28 PO (20:26)
[2018-03-01] MEDS ORDERED: LACT1CAP57 PO (20:26)
[2018-03-01] MEDS ORDERED: LEVO750T21 PO (20:26)
[2018-03-01] MEDS ORDERED: ASCO250T5 PO (20:26)
[2018-03-01] MEDS ORDERED: HYDR-3895 PO (20:26)
[2018-03-01] MEDS ORDERED: DIPH50CA37 PO (20:26)
[2018-03-01] MEDS ORDERED: DICY20TA28 PO (20:26)
[2018-03-01] MEDS ORDERED: IBUP-1955 PO (20:26)
[2018-03-01] MEDS ORDERED: LIDO30AD10 TD (20:26)
[2018-03-01] MEDS ORDERED: INSU100V11 SQ (20:26)
[2018-03-01] MEDS ORDERED: METH-406 PO (20:26)
--- NOTE | 2018-03-01 20:29 | NUR ---
RE-ASSESSMENT PRN Apresoline (HydrALAZINE) administrated at 1928 was effective. BP decreased from 183/91 to 142/66 at 202. All needs met. Safety measures on place. Call light within reach, bed in lowest position locked, and padded rails up bilaterally. Will continue to monitor closely.
--- NOTE | 2018-03-01 20:30 | NUR ---
RE-ASSESSMENT PATIENT IS SLEEPING. RESPIRATIONS ARE EVEN AND UNLABORED. RR 16. PRN TORADOL INJ. 30 MG/1 ML IM ON RIGHT UPPER DORSOGLUTEAL SITE - GLUTEUS LACIE MUSCLE ADMINISTRATED FOR D/T LOW BACK PAIN "05/22" AT 1930 WAS EFFECTIVE. ALL NEEDS MET. SAFETY MEASURES ON PLACE: CALL LIGHT WITHIN REACH, AND PADDED BED RAILS UP X2. WILL CONTINUE TO MONITOR CLOSELY. Addendum: 03/02/18 at 0410 by MYRIAM MANZANARES RN ERROR: INCORRECT TIME
[2018-03-01] MEDS: LATUDA 40MG PO SCH (20:35)
[2018-03-01] MEDS: GUAIFENESIN LA 600 MG TABLET.SA PO SCH (20:36)
[2018-03-01] MEDS ORDERED: INSULIN GLARGINE,HUM 300 UNITS/3 ML CARTRIDGE SQ SCH (21:00)
[2018-03-01] MEDS: diphenhydrAMINE 50 MG CAPSULE PO PRN (23:55)
[2018-03-01] MEDS: METHOCARBAMOL 750 MG TABLET PO PRN (23:55)
--- NOTE | 2018-03-01 23:55 | NUR ---
PRN VISTARIL 25 MG PO, PRN ROBAXIN 750 MG PO, AND PRN BENADRYL 50 MG PO ADMINISTRATION. Patient c/o anxiety, myalgia, and insomnia. PRN Vistaril 25 mg PO administrated for anxiety, PRN Robaxin 750 mg PO administrated for myalgia, and PRN Benadryl 50 mg PO administrated for insomnia as ordered with full glass of water. Patient tolerated well. All needs met. Safe and calm environment with minimized noises was provided. Safety measures on place. Call light within reach, bed in lowest position locked, and padded rails up bilaterally. Will continue to monitor closely.
--- NOTE | 2018-03-01 23:55 | NUR ---
PRN ROBAXIN 750 MG 1 TAB PO AND PRN VISTARIL 25 MG 1 CAPSULE PO ADMINISTRATION Patient c/o myalgia and increased anxiety. PRN Robaxin 750 mg PO for myalgia and PRN Vistaril 25 mg PO for anxiety administrated with full glass of water as ordered. Patient tolerated well. All needs met. Safety measures on place. Call light within reach, bed locked in lowest position, and padded rails up bilaterally. Will continue to monitor closely.
[2018-03-02] VITALS: BP 142/66
--- NOTE | 2018-03-02 00:14 | NUR ---
PRN ALBUTEROL NEBU ADMINISTRATION Patient c/o dyspnea and SOB. PRN Albuterol Nebu administrated as ordered. Patient tolerated well. All needs met. Safe and calm environment with minimized noises was provided. Safety measures on place. Call light within reach, bed in lowest position locked, and padded rails up bilaterally. Will continue to monitor closely.
--- NOTE | 2018-03-02 00:44 | NUR ---
RE-ASSESSMENT Patient is sleeping. RR:16. Respirations are unlabored and even. PRN Albuterol Nebu administrated for dyspnea and SOB at 0014 was effective. Safety measures in the place: Call light within reach, bed in the lowest position locked, and padded rails up x2. Will to continue to monitor closely.
--- NOTE | 2018-03-02 00:55 | NUR ---
RE-ASSESSMENT Patient is sleeping. Respirations even and unlabored. RR:16. Robaxin 750 mg PO for myalgia administrated with full glass of water as ordered at 2355. All needs met. Safety measures on place. Call light within reach, bed in lowest position locked, and padded rails up bilaterally. Will continue to monitor closely.
--- NOTE | 2018-03-02 00:55 | NUR ---
RE-ASSESSMENT Patient is sleeping. Respirations even and unlabored. RR:16. PRN Vistaril administrated for anxiety, PRN Benadryl 50 mg PO administrated for insomnia were effective. All needs met. Safety measures on place. Call light within reach, bed in lowest position locked, and padded rails up bilaterally. Will continue to monitor closely.
[2018-03-02] MEDS: KETOROLAC TROMETHAMINE 30 MG INJ IM PRN (03:44)
--- NOTE | 2018-03-02 03:44 | NUR ---
PRN TORADOL INJ.(KETOROLAC TROMETHAMINE 30 MG INJ.) 30 MG/1 ML IM ADMINISTRATION PRN TORADOL INJ. 30 MG/1 ML IM ON RIGHT UPPER DELTOID MUSCLE ADMINISTRATED FOR D/T LOW BACK PAIN "06/21". PATIENT TOLERATED WELL. ALL NEEDS MET. SAFETY MEASURES: CALL LIGHT WITHIN REACH, BED IS LOCKED IN THE LOWEST POSITION, AND PADDED BED RAILS UP X2. WILL CONTINUE TO MONITOR CLOSELY.
[2018-03-02 04:00] VITALS: BP 143/87
--- NOTE | 2018-03-02 04:14 | NUR ---
PRN TORADOL RE-ASSESSMENT PATIENT IS SLEEPING. RESPIRATIONS ARE EVEN AND UNLABORED. RR 16. PRN TORADOL INJ. 30 MG/1 ML IM ON RIGHT UPPER DELTOID MUSCLE ADMINISTRATED FOR D/T LOW BACK PAIN "06/21" AT 0344 WAS EFFECTIVE. ALL NEEDS MET. SAFETY MEASURES ON PLACE: CALL LIGHT WITHIN REACH, AND PADDED BED RAILS UP X2. WILL CONTINUE TO MONITOR CLOSELY.
[2018-03-02] MEDS: CLONIDINE HCL 0.1 MG TABLET PO PRN (05:13)
--- NOTE | 2018-03-02 05:13 | NUR ---
PRN CATAPRES (CLONIDINE HCL 0.1 MG TABLET) 0.1 MG 1 TAB PO ADMINISTRATION Patient c/o anxiety. PRN Catapres (Clonidine HCL 0.1 mg tablet) 0.1 mg 1 tab PO administrated for anxiety as ordered. Patient tolerated well. All needs met. Safety measures: Call light within reach, bed in lowest position locked, and padded rails up bilaterally. Will continue to monitor closely.
--- NOTE | 2018-03-02 06:13 | NUR ---
PRN CLONIDINE RE-ASSESSMENT Patient is sleeping. Respirations even and unlabored. RR 16. PRN Clonidine 0.1 mg PO administrated for anxiety at 0513 was effective. All needs met. Safe and calm environment with minimized noises was provided. Safety measures: Call light within reach, bed locked in lowest position, and padded rails up bilaterally. Will continue to monitor closely.
--- NOTE | 2018-03-02 07:22 | NUR ---
END OF SHIFT NOTE: Endorsed patient is a 52 year old female completed 5 day Valium and 4 day Subutex taper ordered for Benzodiazepines(Ativan), Opioid(Percocet), and Methamphetamine withdrawal. Withdrawal symptoms was closely monitored. Patient reports allergy to Compazine, Zofran, Sulfa (Sulfonamide, Antibiotics), Ondansetron, Prochlorperazine. Patient is on Full Code and Diabetic Diet. Patient is on Fall and Seizures Precautions. Patient denies history of withdrawal-related seizures. Patient reports history of Fall (Jan, 2018). Patient is alert and oriented x4, ambulatory with steady gate. She is noted anxious, worried with irritable mood and labile affect. Reassuring provided. Encouraged expressed her feelings. Initial COWS=14, CIWA=14 at 2000, COWS=11, CIWA=11 at 0000. The most recent COWS=14, CIWA=12 at 0400. During my shift patient presented with anxiety, agitation, severe body aches, nausea, nervousness, nasal congestion, tremors, sweating, restless legs, and fatigue. Skin is intact, warm and dry to touch. PRN Hydralazine 50 mg administrated for BP 183/91 at 1929, PRN Toradol 30 mg/1ml x2 administrated for severe low back pain at 1930 and at 0314, PRN Vistaril 25 mg PO administrated for anxiety at 2355, PRN Robaxin 750 mg PO administrated for myalgia at 2355, PRN Benadryl 50 mg PO administrated for insomnia at 2355, PRN Albuterol Nebu administrated for dyspnea and SOB at 0014, and PRN Catapres (Clonidine HCL 0.1 mg tablet) 0.1 mg PO administrated for anxiety at 0513, and were effective. Patient remains compliant with treatment, medications and diet regime. Encouraged to increase oral fluids as tolerated. Patient scheduled for discharging today at 0930. Calm and safety environment with minimized noises was provided. Patient slept 4 hours, intake 2,355 ml, voided x5. Encouraged to fluid intake as tolerated. All needs met. Safety measures in the place: Call light within reach, bed in the lowest position and locked, and padded rails up x2. Patient endorsed to day shift nurse.
[2018-03-02] MEDS: INSULIN ASPART 1000 UNITS/10 ML VIAL(NOVOLOG) SQ SCH (07:30)
--- NOTE | 2018-03-02 07:57 | NUR ---
BEGINNING OF SHIFT Patient endorsement report received from date night caregiver nurse, all pertinent information discussed. Patient is a 52 year old female with admitting Dx: BZO/Opiate withdrawal. Patient completed 5 day Valium taper and 4 day Subutex taper. Per date night caregiver patient with last cow score of: 14, and ciwa score of: 12. Per date night caregiver patient received PRN: Toradol x2, Hydralazine, Vistaril, Benadryl, Clonidine and Robaxin. Slept for 4 hours. fall and seizure precautions in place and observed at all times. Patient with no s/sx of hypo/hyperglycemia. Educated regarding diet orders, with good verbal understanding. Patient received awake, alert and oriented x4, noted self motivated towards sobriety. Will educate patient regarding plan of care for the day, and medication regimen, along with discharge instructions. will continue to monitor closely. safety measures in place.
[2018-03-02 08:03] VITALS: BP 124/76
[2018-03-02] MEDS: BLOOD SUGAR DIAGNOSTIC 1 EACH STRIP VI SCH (08:17)
[2018-03-02] MEDS: BACLOFEN 10 MG TABLET PO SCH (08:26)
[2018-03-02] MEDS: FERROUS SULFATE 325 MG TABEC PO SCH (08:26)
[2018-03-02] MEDS: HYDROXYZINE PAMOATE 25 MG CAPSULE PO PRN (08:26)
[2018-03-02] MEDS: ESCITALOPRAM OXALATE 10 MG TABLET PO SCH (08:26)
[2018-03-02] MEDS: LACTOBACILLUS RHAMNOSUS GG 1 EACH CAPSULE PO SCH (08:26)
--- NOTE | 2018-03-02 08:26 | NUR ---
PRN VISTARIL Patient reports increase in anxiety, provided with non pharmacological interventions with no relief, administered Vistaril as ordered, will monitor effectiveness of medication.
[2018-03-02] MEDS: LIDOCAINE 5% PATCH TD SCH (08:35)
[2018-03-02] MEDS: MOMETASONE INH SCH (08:36)
[2018-03-02] MEDS: FORMOTEROL INH SCH (08:36)
[2018-03-02] MEDS: GUAIFENESIN LA 600 MG TABLET.SA PO SCH (08:59)
[2018-03-02] MEDS ORDERED: FOLIC ACID 1 MG TABLET PO SCH (09:00)
[2018-03-02] MEDS ORDERED: ASCORBIC ACID 250 MG TABLET PO SCH (09:00)
--- NOTE | 2018-03-02 09:26 | NUR ---
VISTARIL REASSESSMENT Patient reports medication effective feels less anxious, will continue to monitor. safety measures in place.
--- NOTE | 2018-03-02 09:41 | NUR ---
DISCHARGE Patient discharged off the unit at 0941, in stable condition, not in any apparent acute distress. Prior to discharge patient was educated and provided with teaching regarding all discharge instructions. Patients last blood sugar was 76, NovoLog was held as per MD orders. Patient noted self motivated towards sobriety, discharged to able to change RTC. Patients vital signs WNL. last cow score of: 9 and last ciwa score of: 9. all scheduled medications were administered as ordered. Patients home medications, prescriptions and discharge instructions were placed in patients personal duffel bag. Patient off the unit at 0941 in stable condition.
== END 2018-03-02 09:41 | disposition other institution (70) | DRG 895 ==
LOC: SRC 18:43
PROVIDERS: ADMIT Internal Medicine; ATTEND Internal Medicine
PROC: HZ2ZZZZ Detoxification Services for Substance Abuse Treatment (ICD-10-PCS; principal; 2018-02-23)
PROC: HZ41ZZZ Group Counseling for Substance Abuse Treatment, Behavioral (ICD-10-PCS; 2018-02-26)
PROC: HZ31ZZZ Individual Counseling for Substance Abuse Treatment, Behavioral (ICD-10-PCS; 2018-02-26)
DX: F11.23 Opioid dependence with withdrawal (principal); J18.9 Pneumonia, unspecified organism; A41.9 Sepsis, unspecified organism; Z68.41 Body mass index [BMI] 40.0-44.9, adult; F31.5 Bipolar disorder, current episode depressed, severe, with psychotic features; N17.9 Acute kidney failure, unspecified; E87.3 Alkalosis; E87.1 Hypo-osmolality and hyponatremia; F13.230 Sedative, hypnotic or anxiolytic dependence with withdrawal, uncomplicated; E66.01 Morbid (severe) obesity due to excess calories; Z71.3 Dietary counseling and surveillance; F41.9 Anxiety disorder, unspecified; F90.9 Attention-deficit hyperactivity disorder, unspecified type; J45.40 Moderate persistent asthma, uncomplicated; E78.5 Hyperlipidemia, unspecified; Z90.49 Acquired absence of other specified parts of digestive tract; Z81.1 Family history of alcohol abuse and dependence; Z83.3 Family history of diabetes mellitus; F17.210 Nicotine dependence, cigarettes, uncomplicated; G89.29 Other chronic pain; Z91.5 Personal history of self-harm; Z91.89 Other specified personal risk factors, not elsewhere classified; Z86.74 Personal history of sudden cardiac arrest; Z88.2 Allergy status to sulfonamides; I49.9 Cardiac arrhythmia, unspecified; F15.11 Other stimulant abuse, in remission; E11.43 Type 2 diabetes mellitus with diabetic autonomic (poly)neuropathy; K31.84 Gastroparesis; M54.5 Low back pain; I15.9 Secondary hypertension, unspecified; E87.5 Hyperkalemia; E86.0 Dehydration; E83.42 Hypomagnesemia; E11.22 Type 2 diabetes mellitus with diabetic chronic kidney disease; N18.9 Chronic kidney disease, unspecified; E07.81 Sick-euthyroid syndrome; E87.8 Other disorders of electrolyte and fluid balance, not elsewhere classified; D50.9 Iron deficiency anemia, unspecified; Z79.899 Other long term (current) drug therapy; Z79.4 Long term (current) use of insulin; Z79.82 Long term (current) use of aspirin; R09.02 Hypoxemia
CPT/HCPCS: 36415; 70030-TC; 71045; 80307; 80346; 80361; 82746; 83550; 83605; 83735; 84100; 84443; 84703; 85025; 86403; 86592; 86705; 86803; 87040; 87070; 87086; 87340; 87400; 87806; 90732; 93005; A4663; G0480; J0456; J0696; J1815; J1885; J3490; J7030; J7040; J7060; Q0163